=== PATIENT | male | born 1935 | race Caucasian/White ===

== ENCOUNTER 2018-01-25 11:49 | Emergency (ER) | payer OTHER, MEDICARE ==
--- OUTSIDE RECORDS SUMMARY | 2018-01-25 12:05 | XMS REPORT | Clinical Summary ---
:1935 Author Organization [facility] Address [address] [place] [address] Phone Care Team Providers Name Role Phone Unavailable Primary Care Provider Unavailable Allergies Active Allergy Reactions Severity Noted Date Comments Penicillins Other (See Comments) High 12/21/2016 Unknown reaction Clonazepam 12/21/2016 Zombie state Galantamine 12/21/2016 Got more confused Memantine 12/21/2016 Got more confused Current Medications Prescription Sig. Disp. Refills Start Date End Date Status warfarin (COUMADIN) Take 2.5 mg by Active 2.5 MG tablet mouth daily. simvastatin (ZOCOR) 40 Take 40 mg by Active MG tablet mouth nightly. irbesartan (AVAPRO) Take 300 mg by Active 300 MG tablet mouth nightly. levothyroxine Take 50 mcg by Active (SYNTHROID, mouth Every LEVOTHROID) 50 MCG morning on an tablet empty stomach. aspirin 81 MG chewable Take 81 mg by Active tablet mouth daily. metoprolol (TOPROL-XL) Take 25 mg by Active 25 MG 24 hr tablet mouth daily. magnesium oxide 500 mg Take 500 mg by Active Cap mouth daily. cyanocobalamin Take 1 tablet 30 tablet 0 01/02/2017 01/02/2018 (VITAMIN B-12) 100 MCG (100 mcg tablet total) by mouth daily. cholestyramine Take 2 packets 180 packet 0 01/02/2017 02/01/2017 (QUESTRAN) 4 gram PwPk by mouth 3 packet (three) times daily for 30 days. thiamine (VITAMIN B-1) Take 1 tablet 30 tablet 0 01/02/2017 02/01/2017 50 MG tablet (50 mg total) by mouth daily for 30 days. pantoprazole Take 1 tablet 60 tablet 0 01/02/2017 02/01/2017 (PROTONIX) 40 MG (40 mg total) tablet by mouth 2 (two) times daily for 30 days. 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 Acute CVA (cerebrovascular accident) (HCC) 12/21/2016 Altered mental status 12/21/2016 Cancer (HCC) Coronary artery disease Parkinson's disease (HCC) Thyroid disease Asthma Arthritis Pacemaker Atrial fibrillation (HCC) Family History Medical History Relation Name Comments Stroke Father No Known Problem Mother Relation Name Status Comments Father Mother Social History Tobacco Use Types Packs/Day Years Used Date Former Smoker Comments: Quit 15 years ago Alcohol Use Drinks/Week oz/Week Comments No Sex Assigned at Date Recorded Not on file Last Filed Vital Signs Not on file Plan of Treatment Not on file Results ARRYTHMIA IMPLANT REPORT - SCAN (04/24/2017 2:00 PM)RHYTHM STRIP - SCAN (2016 9:50 AM)after 01/24/2017
--- OUTSIDE RECORDS SUMMARY | 2018-01-25 12:06 | XMS REPORT ---
:1935 [facility] Address [address] [place] [address] Care Team Providers Name Role Phone NAV BARKER Unavailable Unavailable Problems This patient has no known problems. Allergies, Adverse Reactions, Alerts This patient has no known allergies or adverse reactions. Medications This patient has no known medications. Results Test Description Test Time Test Comments Text Results Atomic Results Result Comments PANCREATIC ELASTASE, FECAL 2017-02-24 07:31:00 Test Item Value Reference Range Comments SCAN RESULT (test owxq=[id number]) TISSUE [id number] 11:00:00Surgical Pathology Report Case: [id number] Authorizing Provider: Dionicio Wilkes MD Collected: 01/01/2017 1409 Ordering Location: [address] Received: 01/01/2017 1533 Service Pathologist: Franny Chandler MD Specimen: Small Bowel, NOS, Random small bowel bx , r/o celiac SMALL BOWEL, BIOPSY: - SMALL BOWEL MUCOSA WITH FOCAL SURFACE EROSION AND REACTIVE EPITHELIAL CHANGES - NEGATIVE FOR VILLOUS BLUNTING - NEGATIVE FOR SIGNIFICANT INCREASE OF INTRAEPITHELIAL LYMPHOCYTESElectronically signed by Franny Chandler MD on 2016 at 11:00 AMNo gastric metaplasia is identified.[id number], rule out celiacRandom small bowel biopsy Received in formalin labeled "small bowel" are six fragments measuring 0.8 x 0.6 x 0.1 cm in aggregate. The specimen is entirely submitted in A1. DB/ewPerformed.MISCELLANEOUS LAB [id number] 07:23 :00 Test Item Value Reference Range Comments SCAN RESULT (test tllz=[id number]) PROTHROMBIN TIME/[id number] 06:32:00 Test Item Value Reference Range Comments PROTIME (BEAKER) (test rfjg=882) 15.5 seconds 11.7-14.7 INR (BEAKER) (test wmft=941) 1.2 <=5.9 RECOMMENDED COUMADIN/WARFARIN INR THERAPY RANGESSTANDARD DOSE: 2.0 - 3.0 Includes: PROPHYLAXIS forvenous thrombosis, systemic embolization; TREATMENT for venous thrombosis and/or pulmonary embolus.HIGH RISK: Target INR is 2.5-3.5 for patients with mechanical heart valves.Please draw daily INR whileon warfarin. Thanks!COMPREHENSIVE METABOLIC [id number] 05:45:00 Test Item Value Reference Range Comments TOTAL PROTEIN (BEAKER) 6.1 gm/dL 6.0-8.3 (test lyam=206) ALBUMIN (BEAKER) (test 3.3 g/dL 3.5-5.0 fpns=4974) ALKALINE PHOSPHATASE 90 U/L 40-150 (BEAKER) (test miuc=701) BILIRUBIN TOTAL (BEAKER) 1.0 mg/dL 0.2-1.2 (test lxtc=106) SODIUM (BEAKER) (test 135 meq/L 136-145 hooa=744) POTASSIUM (BEAKER) (test 4.1 meq/L 3.5-5.1 qsoa=934) CHLORIDE (BEAKER) (test 112 meq/L 98-107 imtl=897) CO2 (BEAKER) (test 16 meq/L 22-29 ljwe=428) BLOOD UREA NITROGEN 15 mg/dL 7-21 (BEAKER) (test xtlu=486) CREATININE (BEAKER) (test 0.92 mg/dL 0.57-1.25 vhkh=158) GLUCOSE RANDOM (BEAKER) 99 mg/dL 70-105 (test rros=894) CALCIUM (BEAKER) (test 8.6 mg/dL 8.4-10.2 ytes=977) AST (SGOT) (BEAKER) (test 18 U/L 5-34 rjev=855) ALT (SGPT) (BEAKER) (test 26 U/L 6-55 edkd=017) EGFR (BEAKER) (test 79 mL/min/1.73 sq m ESTIMATED GFR IS NOT uavs=4220) ACCURATE CREATININE CLEARANCE IN PREDICTING GLOMERULAR FILTRATION RATE. ESTIMATED GFR IS NOT APPLICABLE FOR DIALYSIS PATIENTS. [id number] 05:33:00 Test Item Value Reference Range Comments PARTIAL THROMBOPLASTIN TIME (BEAKER) (test 32.4 seconds 22.5-36.0 olpy=804) Please draw daily INR while on warfarin. Thanks!PROTHROMBIN TIME/[id number] 05:32:00 Test Item Value Reference Range Comments PROTIME (BEAKER) (test ciwa=106) 17.0 seconds 11.7-14.7 INR (BEAKER) (test fboa=588) 1.4 <=5.9 RECOMMENDED COUMADIN/WARFARIN INR THERAPY RANGESSTANDARD DOSE: 2.0 - 3.0 Includes: PROPHYLAXIS forvenous thrombosis, systemic embolization; TREATMENT for venous thrombosis and/or pulmonary embolus.HIGH RISK: Target INR is 2.5-3.5 for patients with mechanical heart valves.Please draw daily INR whileon warfarin. Thanks!CBC W/PLT COUNT & AUTO [id number] 05:21:00 Test Item Value Reference Range Comments WHITE BLOOD CELL COUNT (BEAKER) (test lpbd=345) 9.0 K/ L 4.0-10.0 RED BLOOD CELL COUNT (BEAKER) (test eyss=445) 4.09 M/ L 4.20-5.80 HEMOGLOBIN (BEAKER) (test ukos=721) 13.6 GM/DL 13.0-16.8 HEMATOCRIT (BEAKER) (test dzqm=617) 39.4 % 40.0-50.0 MEAN CORPUSCULAR VOLUME (BEAKER) (test rkco=800) 96.3 fL 82.0-98.0 MEAN CORPUSCULAR HEMOGLOBIN (BEAKER) (test 33.3 pg 27.0-33.0 awon=776) MEAN CORPUSCULAR HEMOGLOBIN CONC (BEAKER) (test 34.6 GM/DL 32.0-36.0 ilwq=866) RED CELL DISTRIBUTION WIDTH (BEAKER) (test 12.8 % 10.3-14.2 lgud=555) PLATELET COUNT (BEAKER) (test tmgd=292) 300 K/CU MM 150-430 MEAN PLATELET VOLUME (BEAKER) (test fmag=806) 6.7 fL 6.5-10.5 NUCLEATED RED BLOOD CELLS (BEAKER) (test 0 /100 WBC 0-0 jtdl=745) NEUTROPHILS RELATIVE PERCENT (BEAKER) (test 62 % nivo=741) LYMPHOCYTES RELATIVE PERCENT (BEAKER) (test 23 % ympp=200) MONOCYTES RELATIVE PERCENT (BEAKER) (test 9 % zhwu=693) EOSINOPHILS RELATIVE PERCENT (BEAKER) (test 5 % hdjf=629) BASOPHILS RELATIVE PERCENT (BEAKER) (test 1 % qqxc=496) NEUTROPHILS ABSOLUTE COUNT (BEAKER) (test 5.57 K/ L 1.80-8.00 fhif=305) LYMPHOCYTES ABSOLUTE COUNT (BEAKER) (test 2.07 K/ L 1.48-4.50 ogko=798) MONOCYTES ABSOLUTE COUNT (BEAKER) (test 0.84 K/ L 0.00-1.30 utie=536) EOSINOPHILS ABSOLUTE COUNT (BEAKER) (test 0.42 K/ L 0.00-0.50 wtxf=871) BASOPHILS ABSOLUTE COUNT (BEAKER) (test 0.05 K/ L 0.00-0.20 mqrf=495) 0.00PROTHROMBIN [id number] 05:22:00 Test Item Value Reference Range Comments PROTIME (BEAKER) (test yduh=959) 22.5 seconds 11.7-14.7 INR (BEAKER) (test azwc=402) 2.0 <=5.9 RECOMMENDED COUMADIN/WARFARIN INR THERAPY RANGESSTANDARD DOSE: 2.0 - 3.0 Includes: PROPHYLAXIS forvenous thrombosis, systemic embolization; TREATMENT for venous thrombosis and/or pulmonary embolus.HIGH RISK: Target INR is 2.5-3.5 for patients with mechanical heart valves.Please draw daily INR whileon warfarin. Thanks!COMPREHENSIVE METABOLIC [id number] 05:16:00 Test Item Value Reference Range Comments TOTAL PROTEIN (BEAKER) 6.0 gm/dL 6.0-8.3 (test vppy=399) ALBUMIN (BEAKER) (test 3.3 g/dL 3.5-5.0 ygfi=2128) ALKALINE PHOSPHATASE 84 U/L 40-150 (BEAKER) (test grzn=351) BILIRUBIN TOTAL (BEAKER) 0.6 mg/dL 0.2-1.2 (test jnrw=049) SODIUM (BEAKER) (test 135 meq/L 136-145 fphs=550) POTASSIUM (BEAKER) (test 3.9 meq/L 3.5-5.1 stor=045) CHLORIDE (BEAKER) (test 113 meq/L 98-107 enhv=075) CO2 (BEAKER) (test 16 meq/L 22-29 fbrz=158) BLOOD UREA NITROGEN 19 mg/dL 7-21 (BEAKER) (test nrkl=572) CREATININE (BEAKER) (test 1.07 mg/dL 0.57-1.25 vuzh=179) GLUCOSE RANDOM (BEAKER) 104 mg/dL 70-105 (test hbhq=329) CALCIUM (BEAKER) (test 8.6 mg/dL 8.4-10.2 fdue=841) AST (SGOT) (BEAKER) (test 19 U/L 5-34 asde=070) ALT (SGPT) (BEAKER) (test 25 U/L 6-55 oozo=445) EGFR (BEAKER) (test 66 mL/min/1.73 sq m ESTIMATED GFR IS NOT pozo=8986) ACCURATE CREATININE CLEARANCE IN PREDICTING GLOMERULAR FILTRATION RATE. ESTIMATED GFR IS NOT APPLICABLE FOR DIALYSIS PATIENTS. CBC W/PLT COUNT & AUTO [id number] 04:58:00 Test Item Value Reference Range Comments WHITE BLOOD CELL COUNT (BEAKER) (test rwzd=932) 8.8 K/ L 4.0-10.0 RED BLOOD CELL COUNT (BEAKER) (test qlcx=675) 4.11 M/ L 4.20-5.80 HEMOGLOBIN (BEAKER) (test dbkx=435) 13.4 GM/DL 13.0-16.8 HEMATOCRIT (BEAKER) (test pavx=474) 39.8 % 40.0-50.0 MEAN CORPUSCULAR VOLUME (BEAKER) (test kwxu=494) 97.0 fL 82.0-98.0 MEAN CORPUSCULAR HEMOGLOBIN (BEAKER) (test 32.8 pg 27.0-33.0 jecl=257) MEAN CORPUSCULAR HEMOGLOBIN CONC (BEAKER) (test 33.8 GM/DL 32.0-36.0 gjsr=778) RED CELL DISTRIBUTION WIDTH (BEAKER) (test 14.5 % 10.3-14.2 qmbd=743) PLATELET COUNT (BEAKER) (test jufl=458) 304 K/CU MM 150-430 MEAN PLATELET VOLUME (BEAKER) (test vqkg=391) 6.9 fL 6.5-10.5 NUCLEATED RED BLOOD CELLS (BEAKER) (test 0 /100 WBC 0-0 uavs=677) NEUTROPHILS RELATIVE PERCENT (BEAKER) (test 70 % cqmc=712) LYMPHOCYTES RELATIVE PERCENT (BEAKER) (test 17 % klyx=237) MONOCYTES RELATIVE PERCENT (BEAKER) (test 8 % iibd=089) EOSINOPHILS RELATIVE PERCENT (BEAKER) (test 4 % xtnh=861) BASOPHILS RELATIVE PERCENT (BEAKER) (test 1 % bwaq=248) NEUTROPHILS ABSOLUTE COUNT (BEAKER) (test 6.16 K/ L 1.80-8.00 htnk=201) LYMPHOCYTES ABSOLUTE COUNT (BEAKER) (test 1.48 K/ L 1.48-4.50 kdhz=857) MONOCYTES ABSOLUTE COUNT (BEAKER) (test 0.72 K/ L 0.00-1.30 xnkr=469) EOSINOPHILS ABSOLUTE COUNT (BEAKER) (test 0.39 K/ L 0.00-0.50 eviz=904) BASOPHILS ABSOLUTE COUNT (BEAKER) (test 0.05 K/ L 0.00-0.20 mzgd=634) 0.00COMPREHENSIVE METABOLIC [id number] 04:44:00 Test Item Value Reference Range Comments TOTAL PROTEIN (BEAKER) 6.5 gm/dL 6.0-8.3 (test gtlo=791) ALBUMIN (BEAKER) (test 3.5 g/dL 3.5-5.0 rrfb=7509) ALKALINE PHOSPHATASE 87 U/L 40-150 (BEAKER) (test qyal=946) BILIRUBIN TOTAL (BEAKER) 0.6 mg/dL 0.2-1.2 (test hnts=092) SODIUM (BEAKER) (test 135 meq/L 136-145 uwbk=901) POTASSIUM (BEAKER) (test 4.3 meq/L 3.5-5.1 yuth=971) CHLORIDE (BEAKER) (test 111 meq/L 98-107 dvvn=390) CO2 (BEAKER) (test 15 meq/L 22-29 rxfh=247) BLOOD UREA NITROGEN 15 mg/dL 7-21 (BEAKER) (test rosa=049) CREATININE (BEAKER) (test 1.04 mg/dL 0.57-1.25 ytbz=463) GLUCOSE RANDOM (BEAKER) 109 mg/dL 70-105 (test fhyt=696) CALCIUM (BEAKER) (test 9.0 mg/dL 8.4-10.2 wqux=643) AST (SGOT) (BEAKER) (test 15 U/L 5-34 aryt=234) ALT (SGPT) (BEAKER) (test 22 U/L 6-55 avfa=164) EGFR (BEAKER) (test 68 mL/min/1.73 sq m ESTIMATED GFR IS NOT hazj=6315) ACCURATE CREATININE CLEARANCE IN PREDICTING GLOMERULAR FILTRATION RATE. ESTIMATED GFR IS NOT APPLICABLE FOR DIALYSIS PATIENTS. PROTHROMBIN TIME/[id number] 04:32:00 Test Item Value Reference Range Comments PROTIME (BEAKER) (test ctur=353) 25.9 seconds 11.7-14.7 INR (BEAKER) (test rmep=439) 2.4 <=5.9 RECOMMENDED COUMADIN/WARFARIN INR THERAPY RANGESSTANDARD DOSE: 2.0 - 3.0 Includes: PROPHYLAXIS forvenous thrombosis, systemic embolization; TREATMENT for venous thrombosis and/or pulmonary embolus.HIGH RISK: Target INR is 2.5-3.5 for patients with mechanical heart valves.Please draw daily INR whileon warfarin. Thanks!CBC W/PLT COUNT & AUTO [id number] 04:29:00 Test Item Value Reference Range Comments WHITE BLOOD CELL COUNT (BEAKER) (test kjcp=425) 10.1 K/ L 4.0-10.0 RED BLOOD CELL COUNT (BEAKER) (test xrby=916) 4.25 M/ L 4.20-5.80 HEMOGLOBIN (BEAKER) (test khfr=368) 14.0 GM/DL 13.0-16.8 HEMATOCRIT (BEAKER) (test lchy=628) 41.0 % 40.0-50.0 MEAN CORPUSCULAR VOLUME (BEAKER) (test cgtk=737) 96.4 fL 82.0-98.0 MEAN CORPUSCULAR HEMOGLOBIN (BEAKER) (test 33.0 pg 27.0-33.0 bbdd=345) MEAN CORPUSCULAR HEMOGLOBIN CONC (BEAKER) (test 34.2 GM/DL 32.0-36.0 sirv=179) RED CELL DISTRIBUTION WIDTH (BEAKER) (test 14.6 % 10.3-14.2 nvvg=955) PLATELET COUNT (BEAKER) (test swpt=458) 316 K/CU MM 150-430 MEAN PLATELET VOLUME (BEAKER) (test boet=100) 6.8 fL 6.5-10.5 NUCLEATED RED BLOOD CELLS (BEAKER) (test 0 /100 WBC 0-0 kogk=488) NEUTROPHILS RELATIVE PERCENT (BEAKER) (test 72 % zjcd=379) LYMPHOCYTES RELATIVE PERCENT (BEAKER) (test 16 % rrns=661) MONOCYTES RELATIVE PERCENT (BEAKER) (test 8 % lbpx=275) EOSINOPHILS RELATIVE PERCENT (BEAKER) (test 4 % egid=903) BASOPHILS RELATIVE PERCENT (BEAKER) (test 1 % ynjl=256) NEUTROPHILS ABSOLUTE COUNT (BEAKER) (test 7.25 K/ L 1.80-8.00 xwyy=740) LYMPHOCYTES ABSOLUTE COUNT (BEAKER) (test 1.60 K/ L 1.48-4.50 owhl=761) MONOCYTES ABSOLUTE COUNT (BEAKER) (test 0.82 K/ L 0.00-1.30 zvvu=662) EOSINOPHILS ABSOLUTE COUNT (BEAKER) (test 0.38 K/ L 0.00-0.50 neyf=798) BASOPHILS ABSOLUTE COUNT (BEAKER) (test 0.06 K/ L 0.00-0.20 occo=470) 0.00PROTHROMBIN TIME/[id number] 05:07:00 Test Item Value Reference Range Comments PROTIME (BEAKER) (test bcau=412) 25.0 seconds 11.7-14.7 INR (BEAKER) (test uoxg=856) 2.3 <=5.9 RECOMMENDED COUMADIN/WARFARIN INR THERAPY RANGESSTANDARD DOSE: 2.0 - 3.0 Includes: PROPHYLAXIS forvenous thrombosis, systemic embolization; TREATMENT for venous thrombosis and/or pulmonary embolus.HIGH RISK: Target INR is 2.5-3.5 for patients with mechanical heart valves.Please draw daily INR whileon warfarin. Thanks!PROTHROMBIN TIME/[id number] 06:50:00 Test Item Value Reference Range Comments PROTIME (BEAKER) (test jyla=771) 26.2 seconds 11.7-14.7 INR (BEAKER) (test wiih=437) 2.4 <=5.9 RECOMMENDED COUMADIN/WARFARIN INR THERAPY RANGESSTANDARD DOSE: 2.0 - 3.0 Includes: PROPHYLAXIS forvenous thrombosis, systemic embolization; TREATMENT for venous thrombosis and/or pulmonary embolus.HIGH RISK: Target INR is 2.5-3.5 for patients with mechanical heart valves.Please draw daily INR whileon warfarin. Thanks!HIV-1 ANTIGEN WITH HIV-1/2 [id number] 06:50:00 Test Item Value Reference Range Comments HIV-1 ANTIGEN WITH HIV 1\\T\\2 ANTIBODY (2) Nonreactive Nonreactive (BEAKER) (test ribp=6536) FOLATE, [id number] 06:11:00 Test Item Value Reference Range Comments FOLATE (BEAKER) (test aysz=157) 8.0 ng/mL >=7.0 Effective 05/30/2014: Folate Reference Range ChangeNew: >=7.0 Previous: & gt;=5.4PROTHROMBIN TIME/[id number] 05:51:00 Test Item Value Reference Range Comments PROTIME (BEAKER) (test lrpa=683) 23.9 seconds 11.7-14.7 INR (BEAKER) (test klbc=421) 2.1 <=5.9 RECOMMENDED COUMADIN/WARFARIN INR THERAPY RANGESSTANDARD DOSE: 2.0 - 3.0 Includes: PROPHYLAXIS forvenous thrombosis, systemic embolization; TREATMENT for venous thrombosis and/or pulmonary embolus.HIGH RISK: Target INR is 2.5-3.5 for patients with mechanical heart valves.Please draw daily INR whileon warfarin. Thanks!STOOL CULTURE + SHIGA [id number] 11:25:00 Test Item Value Reference Range Comments CULTURE (JAVIDAKER) (test No Salmonella, Shigella or ucms=8050) Campylobacter isolated [id number] 06:19:00 Test Item Value Reference Range Comments HOMOCYSTEINE (BEAKER) (test ilhh=521) 9.1 umol/L 5.1-15.4 PROTHROMBIN TIME/[id number] 06:00:00 Test Item Value Reference Range Comments PROTIME (BEAKER) (test kbmv=229) 23.8 seconds 11.7-14.7 INR (BEAKER) (test ixsg=246) 2.1 <=5.9 RECOMMENDED COUMADIN/WARFARIN INR THERAPY RANGESSTANDARD DOSE: 2.0 - 3.0 Includes: PROPHYLAXIS forvenous thrombosis, systemic embolization; TREATMENT for venous thrombosis and/or pulmonary embolus.HIGH RISK: Target INR is 2.5-3.5 for patients with mechanical heart valves.Please draw daily INR whileon warfarin. Thanks!IMMUNOGLOBULIN M (IGM)2016-12-26 05:58:00 Test Item Value Reference Range Comments IMMUNOGLOBULIN M (IGM) (BEAKER) (test qogx=864) 40 mg/dL 22-293 IMMUNOGLOBULIN A (IGA)2016-12-26 05:58:00 Test Item Value Reference Range Comments IMMUNOGLOBULIN A (IGA) (BEAKER) (test ibqp=871) 179 mg/dL 63-484 SHIGA TOXIN [id number] 19:16:00 Test Item Value Reference Range Comments SHIGA TOXIN 1 (BEAKER) (test azhw=5861) Not detected Not detected SHIGA TOXIN 2 (BEAKER) (test zomp=9152) Not detected Not detected STOOL PATH [id number] 17:36:00 Test Item Value Reference Range Comments PATHOGEN EXAM CHARGED (BEAKER) (test qtls=7050) Done PROTHROMBIN TIME/[id number] 13:40:00 Test Item Value Reference Range Comments PROTIME (BEAKER) (test rojf=429) 23.0 seconds 11.7-14.7 INR (BEAKER) (test gisw=467) 2.0 <=5.9 RECOMMENDED COUMADIN/WARFARIN INR THERAPY RANGESSTANDARD DOSE: 2.0 - 3.0 Includes: PROPHYLAXIS forvenous thrombosis, systemic embolization; TREATMENT for venous thrombosis and/or pulmonary embolus.HIGH RISK: Target INR is 2.5-3.5 for patients with mechanical heart valves.Please draw daily INR whileon warfarin. Thanks!IMMUNOGLOBULIN G (IGG)2016-12-25 06:22:00 Test Item Value Reference Range Comments IMMUNOGLOBULIN G (IGG) (BEAKER) (test ehjs=536) 699 mg/dL 540-1822 FECAL [id number] 01:26:00 Test Item Value Reference Range Comments FECAL LEUKOCYTES (BEAKER) No fecal leukocytes seen No fecal leukocytes seen (test xyte=675) HEPATIC FUNCTION [id number] 14:50:00 Test Item Value Reference Range Comments TOTAL PROTEIN (BEAKER) (test dwra=031) 6.0 gm/dL 6.0-8.3 ALBUMIN (BEAKER) (test oyis=9897) 3.2 g/dL 3.5-5.0 BILIRUBIN TOTAL (BEAKER) (test rqrv=721) 0.5 mg/dL 0.2-1.2 BILIRUBIN DIRECT (BEAKER) (test dwpj=128) 0.2 mg/dL 0.1-0.5 ALKALINE PHOSPHATASE (BEAKER) (test gxwp=203) 74 U/L 40-150 AST (SGOT) (BEAKER) (test icxf=194) 17 U/L 5-34 ALT (SGPT) (BEAKER) (test zjus=436) 21 U/L 6-55 C-REACTIVE [id number] 14:50:00 Test Item Value Reference Range Comments C-REACTIVE PROTEIN (BEAKER) (test ljbq=254) 1.30 mg/dL 0.00-0.50 [id number] 14:45:00 Test Item Value Reference Range Comments PREALBUMIN (BEAKER) (test 19 mg/dL 14-45 Specimen slightly hemolyzed snej=819) [id number] 05:36:00 Test Item Value Reference Range Comments MAGNESIUM (BEAKER) (test luoi=641) 1.8 mg/dL 1.6-2.6 BASIC METABOLIC [id number] 05:36:00 Test Item Value Reference Range Comments SODIUM (BEAKER) (test 137 meq/L 136-145 kxzg=711) POTASSIUM (BEAKER) (test 3.6 meq/L 3.5-5.1 vsrn=931) CHLORIDE (BEAKER) (test 109 meq/L 98-107 jaxy=244) CO2 (BEAKER) (test 20 meq/L 22-29 zvly=133) BLOOD UREA NITROGEN 13 mg/dL 7-21 (BEAKER) (test bblp=940) CREATININE (BEAKER) (test 0.83 mg/dL 0.57-1.25 felx=729) GLUCOSE RANDOM (BEAKER) 103 mg/dL 70-105 (test wtkn=546) CALCIUM (BEAKER) (test 8.3 mg/dL 8.4-10.2 lmnp=869) EGFR (BEAKER) (test 88 mL/min/1.73 sq m ESTIMATED GFR IS NOT ozxr=2168) ACCURATE CREATININE CLEARANCE IN PREDICTING GLOMERULAR FILTRATION RATE. ESTIMATED GFR IS NOT APPLICABLE FOR DIALYSIS PATIENTS. PROTHROMBIN TIME/[id number] 05:33:00 Test Item Value Reference Range Comments PROTIME (BEAKER) (test iaps=886) 27.9 seconds 11.7-14.7 INR (BEAKER) (test mhys=541) 2.6 <=5.9 RECOMMENDED COUMADIN/WARFARIN INR THERAPY RANGESSTANDARD DOSE: 2.0 - 3.0 Includes: PROPHYLAXIS forvenous thrombosis, systemic embolization; TREATMENT for venous thrombosis and/or pulmonary embolus.HIGH RISK: Target INR is 2.5-3.5 for patients with mechanical heart valves.CBC (HEMOGRAM ONLY)2016-12-24 05:21:00 Test Item Value Reference Range Comments WHITE BLOOD CELL COUNT (BEAKER) (test toxv=839) 8.8 K/ L 4.0-10.0 RED BLOOD CELL COUNT (BEAKER) (test akqq=574) 3.85 M/ L 4.20-5.80 HEMOGLOBIN (BEAKER) (test uvib=512) 12.2 GM/DL 13.0-16.8 HEMATOCRIT (BEAKER) (test ssnp=056) 37.3 % 40.0-50.0 MEAN CORPUSCULAR VOLUME (BEAKER) (test ddsg=524) 96.9 fL 82.0-98.0 MEAN CORPUSCULAR HEMOGLOBIN (BEAKER) (test 31.6 pg 27.0-33.0 jfss=409) MEAN CORPUSCULAR HEMOGLOBIN CONC (BEAKER) (test 32.6 GM/DL 32.0-36.0 pnwi=344) RED CELL DISTRIBUTION WIDTH (BEAKER) (test 14.6 % 10.3-14.2 fmur=816) PLATELET COUNT (BEAKER) (test axnb=100) 247 K/CU MM 150-430 MEAN PLATELET VOLUME (BEAKER) (test ursh=439) 7.0 fL 6.5-10.5 NUCLEATED RED BLOOD CELLS (BEAKER) (test 0 /100 WBC 0-0 fdty=149) 0.00VITAMIN D, [id number] 19:10:00 Test Item Value Reference Range Comments VITAMIN D 25-OH (BEAKER) (test gwck=5628) < ng/mL 13.0-47.8 POCT-GLUCOSE [id number] 08:14:00 Test Item Value Reference Range Comments POC-GLUCOSE METER (BEAKER) 225 mg/dL 70-110 TESTED AT [facility] [address] [facility] (test bprk=2288) [facility] [address] [id number] 05:51:00 Test Item Value Reference Range Comments MAGNESIUM (BEAKER) (test vdpm=283) 2.0 mg/dL 1.6-2.6 BASIC METABOLIC [id number] 05:51:00 Test Item Value Reference Range Comments SODIUM (BEAKER) (test 137 meq/L 136-145 vdab=394) POTASSIUM (BEAKER) (test 3.7 meq/L 3.5-5.1 mcnh=098) CHLORIDE (BEAKER) (test 107 meq/L 98-107 thnr=328) CO2 (BEAKER) (test 20 meq/L 22-29 mzip=949) BLOOD UREA NITROGEN 19 mg/dL 7-21 (BEAKER) (test ocdu=200) CREATININE (BEAKER) (test 0.96 mg/dL 0.57-1.25 jfxy=810) GLUCOSE RANDOM (BEAKER) 106 mg/dL 70-105 (test xrhj=071) CALCIUM (BEAKER) (test 8.7 mg/dL 8.4-10.2 xvdi=746) EGFR (BEAKER) (test 75 mL/min/1.73 sq m ESTIMATED GFR IS NOT ytrw=8959) ACCURATE CREATININE CLEARANCE IN PREDICTING GLOMERULAR FILTRATION RATE. ESTIMATED GFR IS NOT APPLICABLE FOR DIALYSIS PATIENTS. PROTHROMBIN [id number] 05:38:00 Test Item Value Reference Range Comments PROTIME (BEAKER) (test iheo=869) 21.9 seconds 11.7-14.7 INR (BEAKER) (test dyzm=633) 1.9 <=5.9 RECOMMENDED COUMADIN/WARFARIN INR THERAPY RANGESSTANDARD DOSE: 2.0 - 3.0 Includes: PROPHYLAXIS forvenous thrombosis, systemic embolization; TREATMENT for venous thrombosis and/or pulmonary embolus.HIGH RISK: Target INR is 2.5-3.5 for patients with mechanical heart valves.CBC (HEMOGRAM ONLY)2016-12-23 05:37:00 Test Item Value Reference Range Comments WHITE BLOOD CELL COUNT (BEAKER) (test iavm=032) 9.4 K/ L 4.0-10.0 RED BLOOD CELL COUNT (BEAKER) (test ebhx=317) 4.14 M/ L 4.20-5.80 HEMOGLOBIN (BEAKER) (test cbkm=654) 13.5 GM/DL 13.0-16.8 HEMATOCRIT (BEAKER) (test wzmn=963) 40.4 % 40.0-50.0 MEAN CORPUSCULAR VOLUME (BEAKER) (test ktju=048) 97.6 fL 82.0-98.0 MEAN CORPUSCULAR HEMOGLOBIN (BEAKER) (test 32.6 pg 27.0-33.0 dhha=937) MEAN CORPUSCULAR HEMOGLOBIN CONC (BEAKER) (test 33.4 GM/DL 32.0-36.0 feku=081) RED CELL DISTRIBUTION WIDTH (BEAKER) (test 14.8 % 10.3-14.2 igyh=594) PLATELET COUNT (BEAKER) (test phex=633) 243 K/CU MM 150-430 MEAN PLATELET VOLUME (BEAKER) (test cgsg=683) 7.4 fL 6.5-10.5 NUCLEATED RED BLOOD CELLS (BEAKER) (test 0 /100 WBC 0-0 vkfb=232) [id number] 11:58:00 Test Item Value Reference Range Comments RPR SCREEN (BEAKER) (test dvay=093) Nonreactive Nonreactive CLOSTRIDIUM DIFFICILE TOXIN [id number] 11:24:00 Test Item Value Reference Range Comments CLOSTRIDIUM DIFFICILE TOXIN, PCR (BEAKER) (test Not Detected Not Detected mnjr=5296) This qualitative real-time polymerase chain reaction assay detects the tcdB gene , encoded on the C.difficile pathogenicity locus (PaLoc). The product of tcdB, toxin B, is a cytotoxin essential for causing C.difficile-associated disease ( CDAD) and is found in virtually all toxigenic C.difficile.This assay is performed for patients suspected of having either community-acquired or nosocomial CDAD. Accordingly, only symptomatic patients should be tested and formed stools will be rejected unless ileus is present (i.e., specified when ordering). Patients may be colonized with toxigenic C.difficile strains not causing active disease; therefore, clinical correlation is needed when deciding how to manage patients with a positive test result.The assay has not been validated as a test of cure as amplifiable nucleic acid may persist after effective treatment; therefore, follow-up testing of a positive result is not recommended.This qualitative real-time polymerase chain reaction assay detects the tcdB gene, encoded on the C.difficile pathogenicity locus (PaLoc). The product of tcdB, toxin B, is a cytotoxin essential for causing C.difficile- associated disease (CDAD) and is found in virtually all toxigenic C.difficile.This assay is performed for patients suspected of having either community-acquired or nosocomial CDAD. Accordingly, only symptomatic patients should be tested and formed stools will berejected unless ileus is present (i.e. , specified when ordering). Patients may be colonized with toxigenic C.difficile strains not causing active disease; therefore, clinical correlation is needed when deciding how to manage patients with a positive test result.The assay has not been validated as a test of cure as amplifiable nucleic acid may persist after effective treatment; therefore, follow-up testing of a positive result is not recommended.HEMOGLOBIN [id number] 08:09:00 Test Item Value Reference Range Comments HEMOGLOBIN A1C (BEAKER) (test xblu=139) 6.5 % 4.3-6.1 TSH/FREE T4 IF [id number] 07:26:00 Test Item Value Reference Range Comments THYROID STIMULATING HORMONE (BEAKER) (test 1.35 uIU/mL 0.35-4.94 uztl=671) [id number] 07:13:00 Test Item Value Reference Range Comments MAGNESIUM (BEAKER) (test blsh=973) 2.0 mg/dL 1.6-2.6 BASIC METABOLIC [id number] 07:13:00 Test Item Value Reference Range Comments SODIUM (BEAKER) (test 137 meq/L 136-145 kwfl=009) POTASSIUM (BEAKER) (test 3.6 meq/L 3.5-5.1 pkrl=520) CHLORIDE (BEAKER) (test 107 meq/L 98-107 pjyd=480) CO2 (BEAKER) (test 20 meq/L 22-29 xuso=763) BLOOD UREA NITROGEN 18 mg/dL 7-21 (BEAKER) (test sjft=618) CREATININE (BEAKER) (test 0.92 mg/dL 0.57-1.25 ospi=847) GLUCOSE RANDOM (BEAKER) 97 mg/dL 70-105 (test yqfq=543) CALCIUM (BEAKER) (test 8.5 mg/dL 8.4-10.2 jkwc=588) EGFR (BEAKER) (test 79 mL/min/1.73 sq m ESTIMATED GFR IS NOT bxqi=1327) ACCURATE CREATININE CLEARANCE IN PREDICTING GLOMERULAR FILTRATION RATE. ESTIMATED GFR IS NOT APPLICABLE FOR DIALYSIS PATIENTS. LIPID [id number] 07:13:00 Test Item Value Reference Range Comments TRIGLYCERIDES (BEAKER) (test enzz=361) 141 mg/dL CHOLESTEROL (BEAKER) (test gubn=579) 160 mg/dL HDL CHOLESTEROL (BEAKER) (test akku=974) 34 mg/dL LDL CHOLESTEROL CALCULATED (BEAKER) (test 98 mg/dL hlyn=744) Triglyceride Reference Range: Low Risk <150 Borderline 150- 199 High Risk 200-499 Very High Risk >=500Cholesterol Reference Range: Low Risk <200 Borderline 200-239 High Risk > 240HDL Cholesterol Reference Range: Low Risk >=60 High Risk <40LDL Cholesterol Reference Range: Optimal <100 Near Optimal 100-129 Borderline 130-159 High 160-189 Very High >=190CBC (HEMOGRAM ONLY)2016-12-22 07:08:00 Test Item Value Reference Range Comments WHITE BLOOD CELL COUNT (BEAKER) (test kquh=876) 7.6 K/ L 4.0-10.0 RED BLOOD CELL COUNT (BEAKER) (test nrdl=675) 3.98 M/ L 4.20-5.80 HEMOGLOBIN (BEAKER) (test hfpl=021) 13.2 GM/DL 13.0-16.8 HEMATOCRIT (BEAKER) (test hpdx=610) 38.8 % 40.0-50.0 MEAN CORPUSCULAR VOLUME (BEAKER) (test rplb=930) 97.7 fL 82.0-98.0 MEAN CORPUSCULAR HEMOGLOBIN (BEAKER) (test 33.1 pg 27.0-33.0 kxun=510) MEAN CORPUSCULAR HEMOGLOBIN CONC (BEAKER) (test 33.9 GM/DL 32.0-36.0 byhn=643) RED CELL DISTRIBUTION WIDTH (BEAKER) (test 14.7 % 10.3-14.2 iipz=082) PLATELET COUNT (BEAKER) (test dcjm=499) 222 K/CU MM 150-430 MEAN PLATELET VOLUME (BEAKER) (test xqit=905) 7.2 fL 6.5-10.5 NUCLEATED RED BLOOD CELLS (BEAKER) (test 0 /100 WBC 0-0 ddeh=433) 0.00PROTHROMBIN [id number] 07:04:00 Test Item Value Reference Range Comments PROTIME (BEAKER) (test rnyn=224) 22.9 seconds 11.7-14.7 INR (BEAKER) (test wssi=688) 2.0 <=5.9 RECOMMENDED COUMADIN/WARFARIN INR THERAPY RANGESSTANDARD DOSE: 2.0 - 3.0 Includes: PROPHYLAXIS forvenous thrombosis, systemic embolization; TREATMENT for venous thrombosis and/or pulmonary embolus.HIGH RISK: Target INR is 2.5-3.5 for patients with mechanical heart valves.PROTHROMBIN TIME/[id number] 07:03: 00 Test Item Value Reference Range Comments PROTIME (BEAKER) (test ajwk=019) 22.6 seconds 11.7-14.7 INR (BEAKER) (test hypl=110) 2.0 <=5.9 RECOMMENDED COUMADIN/WARFARIN INR THERAPY RANGESSTANDARD DOSE: 2.0 - 3.0 Includes: PROPHYLAXIS forvenous thrombosis, systemic embolization; TREATMENT for venous thrombosis and/or pulmonary embolus.HIGH RISK: Target INR is 2.5-3.5 for patients with mechanical heart valves.VITAMIN [id number] 23:18:00 Test Item Value Reference Range Comments VITAMIN B12 (BEAKER) (test xhgh=078) 210 pg/mL 213-816 SEDIMENTATION [id number] 23:06:00 Test Item Value Reference Range Comments SEDIMENTATION RATE, ERYTHROCYTE (BEAKER) (test 29 mm/HR 0-40 gdnd=508) B-TYPE NATRIURETIC FACTOR (BNP)2016-12-21 18:19:00 Test Item Value Reference Range Comments B-TYPE NATRIURETIC PEPTIDE (BEAKER) (test 124 pg/mL 0-100 jsdl=629) BASIC METABOLIC [id number] 18:11:00 Test Item Value Reference Range Comments SODIUM (BEAKER) (test 136 meq/L 136-145 dzxe=480) POTASSIUM (BEAKER) (test 4.2 meq/L 3.5-5.1 Specimen slightly gvtn=918) hemolyzed CHLORIDE (BEAKER) (test 107 meq/L 98-107 cbpm=108) CO2 (BEAKER) (test 19 meq/L 22-29 hqqt=246) BLOOD UREA NITROGEN 22 mg/dL 7-21 (BEAKER) (test xsmm=126) CREATININE (BEAKER) 1.20 mg/dL 0.57-1.25 Specimen slightly (test mtie=228) hemolyzed GLUCOSE RANDOM (BEAKER) 180 mg/dL 70-105 (test erks=609) CALCIUM (BEAKER) (test 8.8 mg/dL 8.4-10.2 kxfi=376) EGFR (BEAKER) (test 58 mL/min/1.73 sq m INSUFFICIENT CLINICAL DATA sxtr=0965) TO CALCULATE ESTIMATED GFR. CREATINE KINASE (CK), TOTAL AND [id number] 18:11:00 Test Item Value Reference Range Comments CREATINE KINASE TOTAL (BEAKER) (test jdem=149) 36 U/L 29-200 CREATINE KINASE-MB (BEAKER) (test fean=606) 0.5 ng/mL 0.0-6.6 CREATINE KINASE-MB INDEX (BEAKER) (test rffx=935) 1.4 % Effective 05/30/2014: CK-MB Reference Range ChangeNew: 0.0-6.6 Previous: 0.0- 4.9CK-MB Reference Range:<6.7 Normal6.7-10.0 Borderline>10.0 [id number] 18:11:00 Test Item Value Reference Range Comments MAGNESIUM (BEAKER) (test 2.0 mg/dL 1.6-2.6 Specimen slightly hemolyzed scqh=952) TROPONIN [id number] 18:11:00 Test Item Value Reference Range Comments TROPONIN I (BEAKER) (test xdgt=835) 0.01 ng/mL 0.00-0.03 Effective 05/30/2014: Reference Range ChangeNew: 0.00-0.03 Previous 0.00- 0.15Troponin I (TnI) levels must be interpreted in the context of the presenting symptoms and the clinical findings. Elevated TnI levels indicate myocardial damage, but are not specific for ischemic heart disease. Elevated TnI levels are seen in patients with other cardiac conditions (including myocarditis and congestive heartfailure), and slight TnI elevations occur in patients with other conditions, including sepsis, renalfailure, acidosis, acute neurological disease, and persistent tachyarrhythmia.PT/[id number] 17:11:00 Test Item Value Reference Range Comments PROTIME (BEAKER) (test qijc=232) 25.6 seconds 11.7-14.7 INR (BEAKER) (test gfej=562) 2.3 <=5.9 PARTIAL THROMBOPLASTIN TIME (BEAKER) (test 36.5 seconds 22.5-36.0 tngg=839) RECOMMENDED COUMADIN/WARFARIN INR THERAPY RANGESSTANDARD DOSE: 2.0 - 3.0 Includes: PROPHYLAXIS forvenous thrombosis, systemic embolization; TREATMENT for venous thrombosis and/or pulmonary embolus.HIGH RISK: Target INR is 2.5-3.5 for patients with mechanical heart valves.CBC W/PLT COUNT & AUTO [id number] 17:04:00 Test Item Value Reference Range Comments WHITE BLOOD CELL COUNT (BEAKER) (test mjwz=240) 11.9 K/ L 4.0-10.0 RED BLOOD CELL COUNT (BEAKER) (test umyd=945) 4.40 M/ L 4.20-5.80 HEMOGLOBIN (BEAKER) (test tnqh=815) 14.1 GM/DL 13.0-16.8 HEMATOCRIT (BEAKER) (test gqaj=645) 42.8 % 40.0-50.0 MEAN CORPUSCULAR VOLUME (BEAKER) (test qgtx=409) 97.1 fL 82.0-98.0 MEAN CORPUSCULAR HEMOGLOBIN (BEAKER) (test 32.0 pg 27.0-33.0 qdaq=911) MEAN CORPUSCULAR HEMOGLOBIN CONC (BEAKER) (test 33.0 GM/DL 32.0-36.0 pxds=826) RED CELL DISTRIBUTION WIDTH (BEAKER) (test 14.7 % 10.3-14.2 xtmc=936) PLATELET COUNT (BEAKER) (test lgyc=911) 246 K/CU MM 150-430 MEAN PLATELET VOLUME (BEAKER) (test iwfx=235) 7.2 fL 6.5-10.5 NEUTROPHILS RELATIVE PERCENT (BEAKER) (test 93 % otum=173) LYMPHOCYTES RELATIVE PERCENT (BEAKER) (test 2 % tptr=540) MONOCYTES RELATIVE PERCENT (BEAKER) (test 3 % tpkk=495) EOSINOPHILS RELATIVE PERCENT (BEAKER) (test 1 % fivp=434) BASOPHILS RELATIVE PERCENT (BEAKER) (test 1 % hryz=506) NEUTROPHILS ABSOLUTE COUNT (BEAKER) (test K/ L 1.80-8.00 xrte=393) LYMPHOCYTES ABSOLUTE COUNT (BEAKER) (test K/ L 1.48-4.50 tkur=465) MONOCYTES ABSOLUTE COUNT (BEAKER) (test K/ L 0.00-1.30 rcax=704) EOSINOPHILS ABSOLUTE COUNT (BEAKER) (test K/ L 0.00-0.50 nvvb=509) BASOPHILS ABSOLUTE COUNT (BEAKER) (test K/ L 0.00-0.20 jqmz=319)
[2018-01-25] MEDS ORDERED: NA CHLORIDE 0.9% 1,000 ML ONE (12:28)
[2018-01-25 12:50] LABS: Protime INR 2.41
[2018-01-25 12:51] LABS: Absolute Lymphocytes (CBC) 1.3 K/uL (0.7-4.9); Absolute Monocytes 0.7 K/uL (0.1-1.3); Absolute Neutrophil 5.9 K/uL (1.8-8.0); Basophils % 0.7 % (0-1.3); Hematocrit 39.2 % (39.6-49.0); Lymphocytes % 16.3 % (15.3-44.8); MCH 33.3 pg (27.0-35.0); MCV 95.9 fL (80-100); MPV 8.3 fL (7.6-11.3); Monocytes % 8.4 % (3.3-12.3); RBC Red Blood Cell Count 4.09 M/uL (4.33-5.43)
--- NOTE | 2018-01-25 13:27 | RAD REPORT ---
EXAM DESCRIPTION: RAD - Chest Single View - 01/25/2018 1:15 pm CLINICAL HISTORY: Fall, left-sided chest and rib pain COMPARISON: June 2015 TECHNIQUE: AP portable chest image was obtained 1256 hours . FINDINGS: Lung volumes are low. No gross evidence for pulmonary contusion, pulmonary edema or acute lung parenchymal process. Prominence of the vasculature and lung markings can be explained by the sha llow inspiration. No pneumothorax is seen. No large pleural effusion. Small pleural fluid or blood collections in the p osterior gutter cannot be excluded on shallow inspiration portable imaging. Trachea is midline. 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 Heart and vasculature are normal. No ac génesis bone process identifiable. Rib assessment is significantly limited. Dedicated rib series or CT ch est imaging could be performed if there is need to further evaluate the ribcage. No acute aortic find ings suspected. IMPRESSION: No pneumothorax or large pleural fluid collection. Shallow inspiration portable exam accentuates vasculature and lung markings. Significant edema or inf iltrate not suspected. Rib fracture assessment is very limited. Follow-up rib series or CT imaging could be performed as renee ranted.
[2018-01-25 13:34] LABS: ALT/SGPT 19 U/L (12-78); AST/SGOT 12 U/L (15-37); Albumin 3.4 g/dL (3.4-5.0); Alkaline Phosphatase 73 U/L (45-117); BUN Blood Urea Nitrogen 26 mg/dL (7-18); Bicarbonate 26 mmol/L (21-32); Bilirubin Direct 0.1 mg/dL (0-0.2); Bilirubin Total 0.5 mg/dL (0.2-1.0); CKMB Creatine Kinase MB < 1.0 ng/mL (0.3-3.6); Creatine Phosphokinase 46 U/L (39-308); Glucose Level 109 mg/dL (74-106); Lipase 128 U/L (73-393); Magnesium 2.1 mg/dL (1.8-2.4); NT PRO-BNP 323 pg/mL (<450); Potassium 4.3 mmol/L (3.5-5.1); Protein, Total 6.9 g/dL (6.4-8.2); Sodium Level 142 mmol/L (136-145)
--- NOTE | 2018-01-25 14:34 | RAD REPORT ---
EXAM DESCRIPTION: CT - Head C Spine Cap Marv Nguyen - 01/25/2018 2:03 pm CLINICAL HISTORY: Fall, head and neck injury, left-sided rib pain, left-sided abdominal pain COMPARISON: CT lumbar spine January 2017, lumbar spine January 2017. TECHNIQUE: Axial [address] head images were obtained. Axial [address] cervical spine images were obtaine d with sagittal and coronal reconstruction images reviewed. During dynamic enhancement of 100mL non-i onic contrast, axial 5 mm images of the chest, abdomen and pelvis were obtained. All CT scans are performed using dose optimization technique as appropriate and may include automated exposure control or mA/KV adjustment according to patient size. FINDINGS: No intracranial hemorrhage, mass or edema. No midline shift or abnormal fluid collection. Moderate atrophy and chronic ischemic changes are present. Ventricular size is in proportion. Mastoid air cells are clear. Air-fluid level in the right sphenoid sinus present. No findings to suggest sku llbase fracture. Jacobson of the right side sphenoid sinus are thickened relative to the left and this i s probably part of a mixed acute and chronic sphenoid sinusitis. Remaining paranasal sinuses are wendy r. Dense arterial tree calcifications are present. CT cervical spine imaging shows normal height. Straightening of the usual cervical lordosis seen with a very slight retrolisthesis of C5 on C6. Significant disc space narrowing at C4-5, C5-6 and C6-7. E ndplate spurring and uncovertebral joint hypertrophy are present. There is bony foraminal encroachmen t at C5-6 and C6-7. Facet joint degenerative changes are present throughout the cervical spine. Canal is borderline to mildly stenotic at C5-6. Central canal detail is inherently limited. Concerns for t raumatic disc herniation or traumatic cord injury can be further addressed with MR imaging. CT chest shows no pneumothorax, pulmonary contusion or pleural fluid collection. A small 7 mm noncalc ified nodule is present in the superior segment left lower lobe (image 25/96). No mediastinal hematom a. There several nonspecific mediastinal lymph nodes some of which have calcification. No chest will mass or abnormal axillary finding. No displaced rib fracture or other significant bony finding. No p ericardial thickening or effusion. CT abdomen and pelvis show no injury to solid abdominal viscera. Gallbladder and biliary tree are unr emarkable. No acute bowel injury. There is a large amount of stool dilating the rectum. Numerous pelv ic floor clips are present presumed to be from prostatectomy. No abnormal mass or lymphadenopathy. No free air, free fluid or abnormal stranding. No urinary bladder abnormality. The patient has extensive disc and bony degenerative change. Approximately 50% wedge compression of T 12 is present not felt to be substantially different from January 2017. Approximately 15% loss in height L1 body is noted involving the inferior endplate. Posterior wall height is preserved. This is new fr om the comparison but otherwise of uncertain age. No definitive acute component on this examination. IMPRESSION: Atrophy and chronic ischemic changes are present. No acute intracranial finding. Air-fluid level in the right side sphenoid sinuses believed to be part of an acute and chronic sinusi tis process. Skullbase fracture not suspected. Cervical spine degenerative change present as detailed. No acute findings seen. Central canal detail is inherently limited. No pneumothorax, pulmonary contusion, rib fracture or other acute traumatic finding in the chest. A 7 mm noncalcified pulmonary nodule is present. This is probably a noncalcified granuloma. Patient h as evidence of granulomatous disease. Recommendation for follow-up is CT imaging in 6-12 months. No acute injury to the solid abdominal viscera or bowel. No acute abdominal or pelvic process. Large amount of stool dilates the rectum. Approximately 15% compression fracture deformity L1. This is new from January 2017 but is otherwise of u ncertain age. Correlation is needed with any acute symptoms in the upper lumbar spine. The 50% T12 co mpression fracture does not appear to be substantially different from January 2017.
--- NOTE | 2018-01-25 15:16 | EKG ---
Test Date: 2018-01-25 Test Time: 12:25:32 Facility Environmental Technician: CAROLINE MEASUREMENT RESULTS: Intervals: Rate: 70 [place]: QRSD: 140 QT: 420 QTc: 453 [place]: P: [place]: QRS: -54 T: 124 INTERPRETIVE STATEMENTS: Ventricular-paced rhythm Abnormal ECG No previous ECG available for comparison Electronically Signed On 01-25-18 15:15:39 CDT by Faustino Russell
--- NOTE | 2018-01-25 15:33 | ER ---
Nurse's Notes [facility] Name: Luis Schumacher Age: 82 yrs Sex: Male : 1935 Arrival Date: 01/25/2018 Time: 11:53 Bed 8 Private MD: Kd Torres R Diagnosis: Fall due to bumping against object;Fracture of first lumbar vertebra-15 % COMPRESSION;Parkinson's disease;Dementia in other diseases classified elsewhere;Acute sinusitis;Solitary pulmonary nodule Presentation: 01/25 11:58 Presenting complaint: Significant other states: "he fell onto a wooden arm rest and aa5 he's been complaining about the left side of his ribs hurting". Pt's also reports increased confusion over the last week. Pt currently oriented x person and place. Pt's reports pt takes Coumadin, denies known head injury. 11:58 Transition of care: patient was not received from another setting of care. Onset of aa5 symptoms was January 2018. Risk Assessment: Do you want to hurt yourself or someone else? Patient reports no desire to harm self or others. Initial Sepsis Screen: Does the patient meet any 2 criteria? No. Patient's initial sepsis screen is negative. Does the patient have a suspected source of infection? No. Patient's initial sepsis screen is negative. Care prior to arrival: None. 11:58 Method Of Arrival: Wheelchair aa5 11:58 Acuity: MARSHA 2 aa5 Triage Assessment: 12:31 General: Appears in no apparent distress. uncomfortable, Behavior is calm, cooperative, hj appropriate for age. Pain: Complains of pain in left upper quadrant. EENT: No signs and/or symptoms were reported regarding the EENT system. Neuro: Level of Consciousness is awake, alert, obeys commands, Oriented to person, place, situation. Cardiovascular: Capillary refill < 3 seconds Patient's skin is warm and dry. Respiratory: Airway is patent Respiratory effort is even, unlabored, Respiratory pattern is regular, symmetrical. GI: No signs and/or symptoms were reported involving the gastrointestinal system. : No signs and/or symptoms were reported regarding the genitourinary system. Derm: No signs and/or symptoms reported regarding the dermatologic system. Musculoskeletal: Reports pain in left upper quadrant. Historical: - Allergies: 12:03 PENICILLINS; aa5 - PMHx: 12:03 Parkinsons; Hypertension; Carotid artery blockage; CVA; aa5 - PSHx: 12:03 None; aa5 - Immunization history:: Adult Immunizations unknown. - Social history:: Smoking status: Patient/guardian denies using tobacco. - Ebola Screening: : No symptoms or risks identified at this time. - Family history:: not pertinent. Screenin:27 Abuse screen: Denies threats or abuse. Denies injuries from another. Nutritional hj screening: No deficits noted. Tuberculosis screening: No symptoms or risk factors identified. Fall Risk None identified. Assessment: 12:32 Reassessment: see triage assessment;. hj 12:58 Reassessment: Patient and/or family updated on plan of care and expected duration. Pain hj level reassessed. xray taken, awaiting results and POC;. Vital Signs: 12:02 BP 128 / 74; Pulse 80; Resp 20 S; Temp 98.4(O); Pulse Ox 95% on R/A; Weight 104.33 kg aa5 (R); 12:58 BP 129 / 75; Pulse 84; Resp 18; Pulse Ox 100% on R/A; hj ED Course: 11:53 Patient arrived in ED. rg4 11:53 Kd Torres MD is Private Physician. rg4 12:01 Arm band placed on. aa5 12:05 Triage completed. aa5 12:07 Vivek Moseley MD is Attending Physician. gilbert 12:26 Rubén Muniz, RN is Primary Nurse. hj 12:26 EKG done, by communications technologist. reviewed by Vivek Moseley MD. at1 12:32 Patient has correct armband on for positive identification. Placed in gown. Bed in low hj position. Call light in reach. Side rails up X2. Adult w/ patient. 12:42 Initial lab(s) drawn, by me, sent to lab. Inserted saline lock: 20 gauge in right jb1 antecubital area, using aseptic technique. Blood collected. 13:15 XRAY Chest (1 view) In Process Unspecified. EDMS 13:56 CT completed. Patient tolerated procedure well. Patient moved to CT via stretcher. sj Patient moved back from CT. 14:03 CT Traumagram (Head C Spine CAP W Con) In Process Unspecified. EDMS 15:31 Kd Torres MD is Referral Physician. [facility] 15:35 Straight cath inserted, using sterile technique, 16 Fr. Specimen obtained. Returned aj clear yellow urine. Patient tolerated well. 16:01 No provider procedures requiring assistance completed. IV discontinued, intact, hj bleeding controlled, No redness/swelling at site. Pressure dressing applied. Administered Medications: 12:21 Drug: NS 0.9% 500 ml Route: IV; Rate: bolus; Site: right antecubital; hj 16:03 Follow up: IV Status: Completed infusion 12:49 Drug: NS 0.9% 1000 ml Route: IV; Rate: 125 ml/hr; Site: right antecubital; hj 16:03 Follow up: IV Status: Completed infusion Outcome: 15:33 Discharge ordered by . [facility] 16:02 Discharged to home via wheelchair. 16:02 Condition: stable 16:02 Discharge instructions given to patient, family, Instructed on discharge instructions, follow up and referral plans. medication usage, Demonstrated understanding of instructions, follow-up care, medications, Prescriptions given X 1. 16:13 Patient left the ED. Signatures: Dispatcher [employer] EDMS Gerardo Arndt jb1 Keri Bailey, RN Vivek Garza MD MD cha Jones, Susan sj Calderon, Audri, RN RN aa5 Keri garay, global marketing operations manager EKG Tat1 Rubén Muniz RN RN Kateryna Schultz rg4 Corrections: (The following items were deleted from the chart) 12:02 12:02 BP 128 / 74; Pulse 80bpm; Resp 20bpm; Spontaneous; Pulse Ox 95% RA; Temp 98.4F aa5 Oral; aa5
--- NOTE | 2018-01-25 15:33 | EDPHYS ---
Physician Documentation [facility] Name: Luis Schumacher Age: 82 yrs Sex: Male : 1935 Arrival Date: 01/25/2018 Time: 11:53 Bed 8 Private MD: Kd Torres R ED Physician Vivek Moseley HPI: 01/25 12:22 This 82 yrs old Male presents to ER via Wheelchair with complaints of RIB gilbert PAIN,DISORIENTED. 12:22 The patient presents with abdominal pain abdominal distention in the upper abdomen, gilbert blunt injury to the upper abdomen. Onset: The symptoms/episode began/occurred 5 day(s) ago. The patient presents with decreased mental status. Onset: The symptoms/episode began/occurred 2 day(s) ago. Possible causes: unknown. Associated signs and symptoms: The patient has no apparent associated signs or symptoms. Current symptoms: In the emergency department the patient's symptoms are unchanged from the initial presentation, despite home interventions. Historical: - Allergies: 12:03 PENICILLINS; aa5 - PMHx: 12:03 Parkinsons; Hypertension; Carotid artery blockage; CVA; aa5 - PSHx: 12:03 None; aa5 - Immunization history:: Adult Immunizations unknown. - Social history:: Smoking status: Patient/guardian denies using tobacco. - Ebola Screening: : No symptoms or risks identified at this time. - Family history:: not pertinent. ROS: 12:22 Constitutional: Negative for fever, chills, and weight loss, Eyes: Negative for injury, gilbert pain, redness, and discharge, ENT: Negative for injury, pain, and discharge, Neck: Negative for injury, pain, and swelling, Cardiovascular: Negative for chest pain, palpitations, and edema, Respiratory: Negative for shortness of breath, cough, wheezing, and pleuritic chest pain, Back: Negative for injury and pain, : Negative for injury, bleeding, discharge, and swelling, MS/Extremity: Negative for injury and deformity, Skin: Negative for injury, rash, and discoloration, Psych: Negative for depression, anxiety, suicide ideation, homicidal ideation, and hallucinations, Allergy/Immunology: Negative for hives, rash, and allergies, Endocrine: Negative for neck swelling, polydipsia, polyuria, polyphagia, and marked weight changes, Hematologic/Lymphatic: Negative for swollen nodes, abnormal bleeding, and unusual bruising. 12:22 Abdomen/GI: Positive for abdominal pain, of the left upper quadrant. 12:22 Neuro: Positive for altered mental status, dizziness, weakness. Exam: 12:22 Constitutional: This is a well developed, well nourished patient who is awake, alert, gilbert and in no acute distress. Head/Face: Normocephalic, atraumatic. Eyes: Pupils equal round and reactive to light, extra-ocular motions intact. Lids and lashes normal. Conjunctiva and sclera are non-icteric and not injected. Cornea within normal limits. Periorbital areas with no swelling, redness, or edema. ENT: Nares patent. No nasal discharge, no septal abnormalities noted. Tympanic membranes are normal and external auditory canals are clear. Oropharynx with no redness, swelling, or masses, exudates, or evidence of obstruction, uvula midline. Mucous membranes moist. Neck: Trachea midline, no thyromegaly or masses palpated, and no cervical lymphadenopathy. Supple, full range of motion without nuchal rigidity, or vertebral point tenderness. No Meningismus. Chest/axilla: Normal chest wall appearance and motion. Nontender with no deformity. No lesions are appreciated. Cardiovascular: Regular rate and rhythm with a normal S1 and S2. No gallops, murmurs, or rubs. Normal PMI, no JVD. No pulse deficits. Respiratory: Lungs have equal breath sounds bilaterally, clear to auscultation and percussion. No rales, rhonchi or wheezes noted. No increased work of breathing, no retractions or nasal flaring. Abdomen/GI: Soft, non-tender, with normal bowel sounds. No distension or tympany. No guarding or rebound. No evidence of tenderness throughout. Back: No spinal tenderness. No costovertebral tenderness. Full range of motion. Male : Normal genitalia with no discharge or lesions. Skin: Warm, dry with normal turgor. Normal color with no rashes, no lesions, and no evidence of cellulitis. MS/ Extremity: Pulses equal, no cyanosis. Neurovascular intact. Full, normal range of motion. Psych: Awake, alert, with orientation to person, place and time. Behavior, mood, and affect are within normal limits. 12:22 Neuro: Orientation: appropriate for stated age, no acute changes, Mentation: slow to respond, Memory: unable to test, Cranial nerves: no acute changes, Cerebellar function: unable to test, Motor: moves all fours, Sensation: unable to test, Gait: not tested. seizure activity, is not displayed by the patient. Vital Signs: 12:02 BP 128 / 74; Pulse 80; Resp 20 S; Temp 98.4(O); Pulse Ox 95% on R/A; Weight 104.33 kg aa5 (R); 12:58 BP 129 / 75; Pulse 84; Resp 18; Pulse Ox 100% on R/A; hj MDM: 12:07 Patient medically screened. [facility] 12:22 Data reviewed: vital signs, nurses notes, lab test result(s), EKG, radiologic studies, [facility] CT scan, plain films. 01/25 12:21 Order name: Basic Metabolic Panel; Complete Time: 14:13 [facility] 01/25 12:21 Order name: CBC with Diff; Complete Time: 14:13 [facility] 01/25 12:21 Order name: Ckmb; Complete Time: 14:13 [facility] 01/25 12:21 Order name: CPK; Complete Time: 14:13 [facility] 01/25 12:21 Order name: LFT's; Complete Time: 14:13 [facility] 01/25 12:21 Order name: Magnesium; Complete Time: 14:13 [facility] 01/25 12:21 Order name: NT PRO-BNP; Complete Time: 14:13 [facility] 01/25 12:21 Order name: PT-INR; Complete Time: 14:13 [facility] 01/25 12:21 Order name: Ptt, Activated; Complete Time: 14:13 [facility] 01/25 12:21 Order name: Troponin (emerg Dept Use Only); Complete Time: 14:13 [facility] 01/25 12:21 Order name: XRAY Chest (1 view); Complete Time: 14:13 [facility] 01/25 12:21 Order name: Lipase; Complete Time: 14:13 [facility] 01/25 12:21 Order name: Urine Culture [facility] 01/25 15:43 Order name: Urine Dipstick--Ancillary (enter results) 01/25 12:21 Order name: EKG; Complete Time: 12:22 [facility] 01/25 12:21 Order name: Cardiac monitoring; Complete Time: 12:34 [facility] 01/25 12:21 Order name: EKG - Nurse/Tech; Complete Time: 12:34 [facility] 01/25 12:21 Order name: IV Saline Lock; Complete Time: 12:43 [facility] 01/25 12:21 Order name: Labs collected and sent; Complete Time: 12:43 [facility] 01/25 12:21 Order name: O2 Per Protocol; Complete Time: 12:34 [facility] 01/25 12:21 Order name: O2 Sat Monitoring; Complete Time: 12:34 [facility] 01/25 12:21 Order name: Urine Dipstick-Ancillary (obtain specimen); Complete Time: 15:38 [facility] 01/25 12:21 Order name: CT Traumagram (Head C Spine CAP W Con); Complete Time: 15:22 [facility] 01/25 15:31 Order name: INCENTIVE SPIROMETRY [facility] Administered Medications: 12:21 Drug: NS 0.9% 500 ml Route: IV; Rate: bolus; Site: right antecubital; hj 16:03 Follow up: IV Status: Completed infusion 12:49 Drug: NS 0.9% 1000 ml Route: IV; Rate: 125 ml/hr; Site: right antecubital; hj 16:03 Follow up: IV Status: Completed infusion hj Disposition: 01/25/18 15:33 Discharged to Home. Impression: Fall due to bumping against object, Fracture of first lumbar vertebra - 15 % COMPRESSION, Parkinson's disease, Dementia in other diseases classified elsewhere, Acute sinusitis, Solitary pulmonary nodule. - Condition is Stable. - Discharge Instructions: Back, Compression Fracture, Dementia, Fall Prevention and Home Safety, Sinusitis, Adult, Sinusitis, [id number], Vascular Dementia, Fall Prevention and Home Safety, [id number], Pulmonary Nodule, Pulmonary Nodule, [id number]. - Prescriptions for Bactrim DS 800- 160 mg Oral Tablet - take 1 tablet by ORAL route every 12 hours for 10 days; 20 tablet. - Medication Reconciliation Form, Thank You Letter, Antibiotic Education, Prescription Opioid Use form. - Follow up: Kd Torres MD; When: 1 - 2 days; Reason: Recheck today's complaints, Continuance of care, Re-evaluation by your physician. - Problem is new. - Symptoms have improved. Signatures: Dispatcher [employer] Vivek Drummond MD MD cha Calderon, Audri, RN RN aa5 Rubén Muniz RN RN hj Corrections: (The following items were deleted from the chart) 16:13 15:33 01/25/2018 15:33 Discharged to Home. Impression: Fall due to bumping against hj object; Fracture of first lumbar vertebra - 15 % COMPRESSION; Parkinson's disease; Dementia in other diseases classified elsewhere; Acute sinusitis; Solitary pulmonary nodule. Condition is Stable. Forms are Medication Reconciliation Form, Thank You Letter, Antibiotic Education, Prescription Opioid Use. Follow up: Kd Torres; When: 1 - 2 days; Reason: Recheck today's complaints, Continuance of care, Re-evaluation by your physician. Problem is new. Symptoms have improved. gilbert
[2018-01-25 16:17] VITALS: TEMP 98.4
[2018-01-25 16:18] VITALS: BP 129/75; O2SAT 100
[2018-01-25 16:49] LABS: Urine Blood 1+ (NEG); Urine Glucose NEGATIVE (NEG); Urine Protein NEGATIVE (NEG); Urine Specific Gravity 1.015 (1.005-1.030); Urine pH 5.5 (5.0-7.0)
== END 2018-01-25 16:13 | disposition home or self-care (01) ==
LOC: ER 11:49
DX: S32.010A Wedge compression fracture of first lumbar vertebra, initial encounter for closed fracture (principal); J01.90 Acute sinusitis, unspecified; R91.1 Solitary pulmonary nodule; G20 Parkinson's disease; F02.80 Dementia in other diseases classified elsewhere, unspecified severity, without behavioral disturbance, psychotic disturbance, mood disturbance, and anxiety; W18.00XA Striking against unspecified object with subsequent fall, initial encounter; Y93.9 Activity, unspecified; Y92.9 Unspecified place or not applicable; Z88.0 Allergy status to penicillin
CPT/HCPCS: 36415; 70450; 71045; 71260; 72125; 74177; 80048; 80076; 81003; 82550; 82553; 83690; 83735; 83880; 84484; 85025; 85610; 85730; 87086; 87088; 93005; J7030; Q9967; 51702; 96360; 96361; 99284

== ENCOUNTER 2018-03-10 14:19 | Observation (INO) | payer OTHER, MEDICARE ==
--- OUTSIDE RECORDS SUMMARY | 2018-03-10 14:21 | XMS REPORT | Clinical Summary ---
:1935 Author Organization [facility] Address [address] [place] [address] Phone Care Team Providers Name Role Phone [...] 01/02/2018 (VITAMIN B-12) 100 MCG (100 mcg total) tablet by mouth daily. Active Problems Problem Noted Date Diarrheal disease [...] ARRYTHMIA IMPLANT REPORT - SCAN (04/24/2017 2:00 PM)after 03/09/2017
--- OUTSIDE RECORDS SUMMARY | 2018-03-10 14:22 | XMS REPORT ---
:1935 Author Organization [facility] Address [address] [place] [address] Care Team Providers Name Role Phone NAV [...] Value Reference Range Comments SCAN RESULT (test gudh=[id number]) TISSUE [id number] 11:00:00Surgical Pathology Report Case: [id number] Authorizing Provider: Dionicio Wilkes MD Collected: 01/01/2017 1409 Ordering Location: [address] Received: 01/01/2017 1533 Service Pathologist: Franny Chandler MD Specimen: Small Bowel, NOS, Random small bowel bx , r/o celiac SMALL BOWEL, BIOPSY: - SMALL BOWEL MUCOSA WITH FOCAL SURFACE EROSION AND REACTIVE EPITHELIAL CHANGES - NEGATIVE FOR VILLOUS BLUNTING - NEGATIVE FOR SIGNIFICANT INCREASE OF INTRAEPITHELIAL LYMPHOCYTESElectronically signed by Franny Chandler MD on 2016 at 11:00 AMNo gastric metaplasia is identified.[id number], rule out celiacRandom small bowel biopsy Received in formalin labeled "small bowel" are six fragments measuring 0.8 x 0.6 x 0.1 cm in aggregate. The specimen is entirely submitted in A1. DB/ewPerformed.MISCELLANEOUS LAB [id number] 07:23 :00 Test Item Value Reference Range Comments SCAN RESULT (test qugz=[id number]) PROTHROMBIN TIME/[id number] 06:32:00 Test Item Value Reference Range Comments PROTIME (BEAKER) (test gypt=787) 15.5 seconds 11.7-14.7 INR (BEAKER) (test jjfl=290) 1.2 <=5.9 RECOMMENDED COUMADIN/WARFARIN INR THERAPY RANGESSTANDARD DOSE: 2.0 - 3.0 Includes: PROPHYLAXIS forvenous thrombosis, systemic embolization; TREATMENT for venous thrombosis and/or pulmonary embolus.HIGH RISK: Target INR is 2.5-3.5 for patients with mechanical heart valves.Please draw daily INR whileon warfarin. Thanks!COMPREHENSIVE METABOLIC [id number] 05:45:00 Test Item Value Reference Range Comments TOTAL PROTEIN (BEAKER) 6.1 gm/dL 6.0-8.3 (test feua=202) ALBUMIN (BEAKER) (test 3.3 g/dL 3.5-5.0 eooq=9427) ALKALINE PHOSPHATASE 90 U/L 40-150 (BEAKER) (test fgpz=080) BILIRUBIN TOTAL (BEAKER) 1.0 mg/dL 0.2-1.2 (test thyy=781) SODIUM (BEAKER) (test 135 meq/L 136-145 txqr=135) POTASSIUM (BEAKER) (test 4.1 meq/L 3.5-5.1 utcf=147) CHLORIDE (BEAKER) (test 112 meq/L 98-107 czvj=091) CO2 (BEAKER) (test 16 meq/L 22-29 aukn=885) BLOOD UREA NITROGEN 15 mg/dL 7-21 (BEAKER) (test aumc=325) CREATININE (BEAKER) (test 0.92 mg/dL 0.57-1.25 vbwi=700) GLUCOSE RANDOM (BEAKER) 99 mg/dL 70-105 (test itxn=937) CALCIUM (BEAKER) (test 8.6 mg/dL 8.4-10.2 qmvl=634) AST (SGOT) (BEAKER) (test 18 U/L 5-34 rcbw=832) ALT (SGPT) (BEAKER) (test 26 U/L 6-55 cfbp=876) EGFR (BEAKER) (test 79 mL/min/1.73 sq m ESTIMATED GFR IS NOT yutw=1877) ACCURATE CREATININE CLEARANCE IN PREDICTING GLOMERULAR FILTRATION RATE. ESTIMATED GFR IS NOT APPLICABLE FOR DIALYSIS PATIENTS. [id number] 05:33:00 Test Item Value Reference Range Comments PARTIAL THROMBOPLASTIN TIME (BEAKER) (test 32.4 seconds 22.5-36.0 guse=007) Please draw daily INR while on warfarin. Thanks!PROTHROMBIN TIME/[id number] 05:32:00 Test Item Value Reference Range Comments PROTIME (BEAKER) (test bogq=646) 17.0 seconds 11.7-14.7 INR (BEAKER) (test ibep=013) 1.4 <=5.9 RECOMMENDED COUMADIN/WARFARIN INR THERAPY RANGESSTANDARD DOSE: 2.0 - 3.0 Includes: PROPHYLAXIS forvenous thrombosis, systemic embolization; TREATMENT for venous thrombosis and/or pulmonary embolus.HIGH RISK: Target INR is 2.5-3.5 for patients with mechanical heart valves.Please draw daily INR whileon warfarin. Thanks!CBC W/PLT COUNT & AUTO [id number] 05:21:00 Test Item Value Reference Range Comments WHITE BLOOD CELL COUNT (BEAKER) (test wuve=556) 9.0 K/ L 4.0-10.0 RED BLOOD CELL COUNT (BEAKER) (test ghoh=220) 4.09 M/ L 4.20-5.80 HEMOGLOBIN (BEAKER) (test coyh=034) 13.6 GM/DL 13.0-16.8 HEMATOCRIT (BEAKER) (test bozv=776) 39.4 % 40.0-50.0 MEAN CORPUSCULAR VOLUME (BEAKER) (test sjdc=199) 96.3 fL 82.0-98.0 MEAN CORPUSCULAR HEMOGLOBIN (BEAKER) (test 33.3 pg 27.0-33.0 taon=074) MEAN CORPUSCULAR HEMOGLOBIN CONC (BEAKER) (test 34.6 GM/DL 32.0-36.0 tvjf=529) RED CELL DISTRIBUTION WIDTH (BEAKER) (test 12.8 % 10.3-14.2 jvmz=366) PLATELET COUNT (BEAKER) (test euca=046) 300 K/CU MM 150-430 MEAN PLATELET VOLUME (BEAKER) (test thib=388) 6.7 fL 6.5-10.5 NUCLEATED RED BLOOD CELLS (BEAKER) (test 0 /100 WBC 0-0 gcco=075) NEUTROPHILS RELATIVE PERCENT (BEAKER) (test 62 % utuh=082) LYMPHOCYTES RELATIVE PERCENT (BEAKER) (test 23 % cneg=838) MONOCYTES RELATIVE PERCENT (BEAKER) (test 9 % yvjc=487) EOSINOPHILS RELATIVE PERCENT (BEAKER) (test 5 % gmmo=364) BASOPHILS RELATIVE PERCENT (BEAKER) (test 1 % ixon=743) NEUTROPHILS ABSOLUTE COUNT (BEAKER) (test 5.57 K/ L 1.80-8.00 ezhx=715) LYMPHOCYTES ABSOLUTE COUNT (BEAKER) (test 2.07 K/ L 1.48-4.50 uigi=778) MONOCYTES ABSOLUTE COUNT (BEAKER) (test 0.84 K/ L 0.00-1.30 vmaf=429) EOSINOPHILS ABSOLUTE COUNT (BEAKER) (test 0.42 K/ L 0.00-0.50 hkul=734) BASOPHILS ABSOLUTE COUNT (BEAKER) (test 0.05 K/ L 0.00-0.20 tjhv=164) 0.00PROTHROMBIN [id number] 05:22:00 Test Item Value Reference Range Comments PROTIME (BEAKER) (test lcmv=564) 22.5 seconds 11.7-14.7 INR (BEAKER) (test iadq=456) 2.0 <=5.9 RECOMMENDED COUMADIN/WARFARIN INR THERAPY RANGESSTANDARD DOSE: 2.0 - 3.0 Includes: PROPHYLAXIS forvenous thrombosis, systemic embolization; TREATMENT for venous thrombosis and/or pulmonary embolus.HIGH RISK: Target INR is 2.5-3.5 for patients with mechanical heart valves.Please draw daily INR whileon warfarin. Thanks!COMPREHENSIVE METABOLIC [id number] 05:16:00 Test Item Value Reference Range Comments TOTAL PROTEIN (BEAKER) 6.0 gm/dL 6.0-8.3 (test eeku=855) ALBUMIN (BEAKER) (test 3.3 g/dL 3.5-5.0 msux=4073) ALKALINE PHOSPHATASE 84 U/L 40-150 (BEAKER) (test iqfb=731) BILIRUBIN TOTAL (BEAKER) 0.6 mg/dL 0.2-1.2 (test ixco=185) SODIUM (BEAKER) (test 135 meq/L 136-145 nswu=423) POTASSIUM (BEAKER) (test 3.9 meq/L 3.5-5.1 xiob=959) CHLORIDE (BEAKER) (test 113 meq/L 98-107 yzjx=525) CO2 (BEAKER) (test 16 meq/L 22-29 ciyj=786) BLOOD UREA NITROGEN 19 mg/dL 7-21 (BEAKER) (test rmne=912) CREATININE (BEAKER) (test 1.07 mg/dL 0.57-1.25 uagd=941) GLUCOSE RANDOM (BEAKER) 104 mg/dL 70-105 (test vabt=776) CALCIUM (BEAKER) (test 8.6 mg/dL 8.4-10.2 vclt=147) AST (SGOT) (BEAKER) (test 19 U/L 5-34 ucrs=811) ALT (SGPT) (BEAKER) (test 25 U/L 6-55 sivk=919) EGFR (BEAKER) (test 66 mL/min/1.73 sq m ESTIMATED GFR IS NOT zker=8694) ACCURATE CREATININE CLEARANCE IN PREDICTING GLOMERULAR FILTRATION RATE. ESTIMATED GFR IS NOT APPLICABLE FOR DIALYSIS PATIENTS. CBC W/PLT COUNT & AUTO [id number] 04:58:00 Test Item Value Reference Range Comments WHITE BLOOD CELL COUNT (BEAKER) (test lmmi=354) 8.8 K/ L 4.0-10.0 RED BLOOD CELL COUNT (BEAKER) (test xilp=735) 4.11 M/ L 4.20-5.80 HEMOGLOBIN (BEAKER) (test xrzz=725) 13.4 GM/DL 13.0-16.8 HEMATOCRIT (BEAKER) (test uxtc=926) 39.8 % 40.0-50.0 MEAN CORPUSCULAR VOLUME (BEAKER) (test tbeb=213) 97.0 fL 82.0-98.0 MEAN CORPUSCULAR HEMOGLOBIN (BEAKER) (test 32.8 pg 27.0-33.0 vfac=452) MEAN CORPUSCULAR HEMOGLOBIN CONC (BEAKER) (test 33.8 GM/DL 32.0-36.0 nhwq=877) RED CELL DISTRIBUTION WIDTH (BEAKER) (test 14.5 % 10.3-14.2 hutw=990) PLATELET COUNT (BEAKER) (test mimy=352) 304 K/CU MM 150-430 MEAN PLATELET VOLUME (BEAKER) (test vczf=247) 6.9 fL 6.5-10.5 NUCLEATED RED BLOOD CELLS (BEAKER) (test 0 /100 WBC 0-0 lbnr=163) NEUTROPHILS RELATIVE PERCENT (BEAKER) (test 70 % adwg=155) LYMPHOCYTES RELATIVE PERCENT (BEAKER) (test 17 % tvgt=674) MONOCYTES RELATIVE PERCENT (BEAKER) (test 8 % fmvn=741) EOSINOPHILS RELATIVE PERCENT (BEAKER) (test 4 % kpcb=812) BASOPHILS RELATIVE PERCENT (BEAKER) (test 1 % inmm=493) NEUTROPHILS ABSOLUTE COUNT (BEAKER) (test 6.16 K/ L 1.80-8.00 sruw=655) LYMPHOCYTES ABSOLUTE COUNT (BEAKER) (test 1.48 K/ L 1.48-4.50 gbxj=959) MONOCYTES ABSOLUTE COUNT (BEAKER) (test 0.72 K/ L 0.00-1.30 ysum=647) EOSINOPHILS ABSOLUTE COUNT (BEAKER) (test 0.39 K/ L 0.00-0.50 ryze=466) BASOPHILS ABSOLUTE COUNT (BEAKER) (test 0.05 K/ L 0.00-0.20 hqci=257) 0.00COMPREHENSIVE METABOLIC [id number] 04:44:00 Test Item Value Reference Range Comments TOTAL PROTEIN (BEAKER) 6.5 gm/dL 6.0-8.3 (test avio=835) ALBUMIN (BEAKER) (test 3.5 g/dL 3.5-5.0 klpy=4745) ALKALINE PHOSPHATASE 87 U/L 40-150 (BEAKER) (test ztiy=054) BILIRUBIN TOTAL (BEAKER) 0.6 mg/dL 0.2-1.2 (test jhqp=851) SODIUM (BEAKER) (test 135 meq/L 136-145 zqle=898) POTASSIUM (BEAKER) (test 4.3 meq/L 3.5-5.1 mujn=108) CHLORIDE (BEAKER) (test 111 meq/L 98-107 qian=436) CO2 (BEAKER) (test 15 meq/L 22-29 rcav=220) BLOOD UREA NITROGEN 15 mg/dL 7-21 (BEAKER) (test zrjv=875) CREATININE (BEAKER) (test 1.04 mg/dL 0.57-1.25 njfn=873) GLUCOSE RANDOM (BEAKER) 109 mg/dL 70-105 (test rwrc=958) CALCIUM (BEAKER) (test 9.0 mg/dL 8.4-10.2 hyxc=101) AST (SGOT) (BEAKER) (test 15 U/L 5-34 qgyq=753) ALT (SGPT) (BEAKER) (test 22 U/L 6-55 urnz=614) EGFR (BEAKER) (test 68 mL/min/1.73 sq m ESTIMATED GFR IS NOT mapg=4090) ACCURATE CREATININE CLEARANCE IN PREDICTING GLOMERULAR FILTRATION RATE. ESTIMATED GFR IS NOT APPLICABLE FOR DIALYSIS PATIENTS. PROTHROMBIN [id number] 04:32:00 Test Item Value Reference Range Comments PROTIME (BEAKER) (test iprm=033) 25.9 seconds 11.7-14.7 INR (BEAKER) (test jlfu=428) 2.4 <=5.9 RECOMMENDED COUMADIN/WARFARIN INR THERAPY RANGESSTANDARD DOSE: 2.0 - 3.0 Includes: PROPHYLAXIS forvenous thrombosis, systemic embolization; TREATMENT for venous thrombosis and/or pulmonary embolus.HIGH RISK: Target INR is 2.5-3.5 for patients with mechanical heart valves.Please draw daily INR whileon warfarin. Thanks!CBC W/PLT COUNT & AUTO [id number] 04:29:00 Test Item Value Reference Range Comments WHITE BLOOD CELL COUNT (BEAKER) (test eqjw=368) 10.1 K/ L 4.0-10.0 RED BLOOD CELL COUNT (BEAKER) (test mmze=681) 4.25 M/ L 4.20-5.80 HEMOGLOBIN (BEAKER) (test ulru=985) 14.0 GM/DL 13.0-16.8 HEMATOCRIT (BEAKER) (test taan=150) 41.0 % 40.0-50.0 MEAN CORPUSCULAR VOLUME (BEAKER) (test oswg=815) 96.4 fL 82.0-98.0 MEAN CORPUSCULAR HEMOGLOBIN (BEAKER) (test 33.0 pg 27.0-33.0 xjeq=193) MEAN CORPUSCULAR HEMOGLOBIN CONC (BEAKER) (test 34.2 GM/DL 32.0-36.0 uagd=989) RED CELL DISTRIBUTION WIDTH (BEAKER) (test 14.6 % 10.3-14.2 vcrr=185) PLATELET COUNT (BEAKER) (test kuuo=276) 316 K/CU MM 150-430 MEAN PLATELET VOLUME (BEAKER) (test awit=735) 6.8 fL 6.5-10.5 NUCLEATED RED BLOOD CELLS (BEAKER) (test 0 /100 WBC 0-0 zwsm=056) NEUTROPHILS RELATIVE PERCENT (BEAKER) (test 72 % hkvg=363) LYMPHOCYTES RELATIVE PERCENT (BEAKER) (test 16 % gnwd=828) MONOCYTES RELATIVE PERCENT (BEAKER) (test 8 % wose=858) EOSINOPHILS RELATIVE PERCENT (BEAKER) (test 4 % ubab=549) BASOPHILS RELATIVE PERCENT (BEAKER) (test 1 % nnii=605) NEUTROPHILS ABSOLUTE COUNT (BEAKER) (test 7.25 K/ L 1.80-8.00 auwq=860) LYMPHOCYTES ABSOLUTE COUNT (BEAKER) (test 1.60 K/ L 1.48-4.50 daac=837) MONOCYTES ABSOLUTE COUNT (BEAKER) (test 0.82 K/ L 0.00-1.30 hbpd=850) EOSINOPHILS ABSOLUTE COUNT (BEAKER) (test 0.38 K/ L 0.00-0.50 lbwx=174) BASOPHILS ABSOLUTE COUNT (BEAKER) (test 0.06 K/ L 0.00-0.20 nelb=090) 0.00PROTHROMBIN TIME/[id number] 05:07:00 Test Item Value Reference Range Comments PROTIME (BEAKER) (test rskd=543) 25.0 seconds 11.7-14.7 INR (BEAKER) (test iiti=483) 2.3 <=5.9 RECOMMENDED COUMADIN/WARFARIN INR THERAPY RANGESSTANDARD DOSE: 2.0 - 3.0 Includes: PROPHYLAXIS forvenous thrombosis, systemic embolization; TREATMENT for venous thrombosis and/or pulmonary embolus.HIGH RISK: Target INR is 2.5-3.5 for patients with mechanical heart valves.Please draw daily INR whileon warfarin. Thanks!PROTHROMBIN TIME/[id number] 06:50:00 Test Item Value Reference Range Comments PROTIME (BEAKER) (test hicl=856) 26.2 seconds 11.7-14.7 INR (BEAKER) (test nfkm=937) 2.4 <=5.9 RECOMMENDED COUMADIN/WARFARIN INR THERAPY RANGESSTANDARD DOSE: 2.0 - 3.0 Includes: PROPHYLAXIS forvenous thrombosis, systemic embolization; TREATMENT for venous thrombosis and/or pulmonary embolus.HIGH RISK: Target INR is 2.5-3.5 for patients with mechanical heart valves.Please draw daily INR whileon warfarin. Thanks!HIV-1 ANTIGEN WITH HIV-1/2 [id number] 06:50:00 Test Item Value Reference Range Comments HIV-1 ANTIGEN WITH HIV 1\\T\\2 ANTIBODY (2) Nonreactive Nonreactive (BEAKER) (test delw=7872) FOLATE, [id number] 06:11:00 Test Item Value Reference Range Comments FOLATE (BEAKER) (test xhwh=500) 8.0 ng/mL >=7.0 Effective 05/30/2014: Folate Reference Range ChangeNew: >=7.0 Previous: & gt;=5.4PROTHROMBIN TIME/[id number] 05:51:00 Test Item Value Reference Range Comments PROTIME (BEAKER) (test cicf=942) 23.9 seconds 11.7-14.7 INR (BEAKER) (test wltm=339) 2.1 <=5.9 RECOMMENDED COUMADIN/WARFARIN INR THERAPY RANGESSTANDARD DOSE: 2.0 - 3.0 Includes: PROPHYLAXIS forvenous thrombosis, systemic embolization; TREATMENT for venous thrombosis and/or pulmonary embolus.HIGH RISK: Target INR is 2.5-3.5 for patients with mechanical heart valves.Please draw daily INR whileon warfarin. Thanks!STOOL CULTURE + SHIGA [id number] 11:25:00 Test Item Value Reference Range Comments CULTURE (BEAKER) (test No Salmonella, Shigella or jpjg=0796) Campylobacter isolated [id number] 06:19:00 Test Item Value Reference Range Comments HOMOCYSTEINE (BEAKER) (test oeph=151) 9.1 umol/L 5.1-15.4 PROTHROMBIN TIME/[id number] 06:00:00 Test Item Value Reference Range Comments PROTIME (BEAKER) (test kpuv=524) 23.8 seconds 11.7-14.7 INR (BEAKER) (test xefk=729) 2.1 <=5.9 RECOMMENDED COUMADIN/WARFARIN INR THERAPY RANGESSTANDARD DOSE: 2.0 - 3.0 Includes: PROPHYLAXIS forvenous thrombosis, systemic embolization; TREATMENT for venous thrombosis and/or pulmonary embolus.HIGH RISK: Target INR is 2.5-3.5 for patients with mechanical heart valves.Please draw daily INR whileon warfarin. Thanks!IMMUNOGLOBULIN M (IGM)2016-12-26 05:58:00 Test Item Value Reference Range Comments IMMUNOGLOBULIN M (IGM) (BEAKER) (test nhwz=101) 40 mg/dL 22-293 IMMUNOGLOBULIN A (IGA)2016-12-26 05:58:00 Test Item Value Reference Range Comments IMMUNOGLOBULIN A (IGA) (BEAKER) (test oysx=914) 179 mg/dL 63-484 SHIGA TOXIN [id number] 19:16:00 Test Item Value Reference Range Comments SHIGA TOXIN 1 (BEAKER) (test xorx=5170) Not detected Not detected SHIGA TOXIN 2 (BEAKER) (test jlex=3083) Not detected Not detected STOOL PATH [id number] 17:36:00 Test Item Value Reference Range Comments PATHOGEN EXAM CHARGED (BEAKER) (test gjxr=3866) Done PROTHROMBIN TIME/[id number] 13:40:00 Test Item Value Reference Range Comments PROTIME (BEAKER) (test unvo=131) 23.0 seconds 11.7-14.7 INR (BEAKER) (test xdhb=043) 2.0 <=5.9 RECOMMENDED COUMADIN/WARFARIN INR THERAPY RANGESSTANDARD DOSE: 2.0 - 3.0 Includes: PROPHYLAXIS forvenous thrombosis, systemic embolization; TREATMENT for venous thrombosis and/or pulmonary embolus.HIGH RISK: Target INR is 2.5-3.5 for patients with mechanical heart valves.Please draw daily INR whileon warfarin. Thanks!IMMUNOGLOBULIN G (IGG)2016-12-25 06:22:00 Test Item Value Reference Range Comments IMMUNOGLOBULIN G (IGG) (BEAKER) (test bakc=453) 699 mg/dL 540-1822 FECAL [id number] 01:26:00 Test Item Value Reference Range Comments FECAL LEUKOCYTES (BEAKER) No fecal leukocytes seen No fecal leukocytes seen (test omkm=478) HEPATIC FUNCTION [id number] 14:50:00 Test Item Value Reference Range Comments TOTAL PROTEIN (BEAKER) (test sqwr=982) 6.0 gm/dL 6.0-8.3 ALBUMIN (BEAKER) (test btmi=6654) 3.2 g/dL 3.5-5.0 BILIRUBIN TOTAL (BEAKER) (test rfrz=047) 0.5 mg/dL 0.2-1.2 BILIRUBIN DIRECT (BEAKER) (test sgcy=828) 0.2 mg/dL 0.1-0.5 ALKALINE PHOSPHATASE (BEAKER) (test yctk=602) 74 U/L 40-150 AST (SGOT) (BEAKER) (test mnkx=025) 17 U/L 5-34 ALT (SGPT) (BEAKER) (test nlso=127) 21 U/L 6-55 C-REACTIVE [id number] 14:50:00 Test Item Value Reference Range Comments C-REACTIVE PROTEIN (BEAKER) (test dpny=847) 1.30 mg/dL 0.00-0.50 [id number] 14:45:00 Test Item Value Reference Range Comments PREALBUMIN (BEAKER) (test 19 mg/dL 14-45 Specimen slightly hemolyzed vbgx=837) [id number] 05:36:00 Test Item Value Reference Range Comments MAGNESIUM (BEAKER) (test raku=555) 1.8 mg/dL 1.6-2.6 BASIC METABOLIC [id number] 05:36:00 Test Item Value Reference Range Comments SODIUM (BEAKER) (test 137 meq/L 136-145 syrv=401) POTASSIUM (BEAKER) (test 3.6 meq/L 3.5-5.1 paaq=175) CHLORIDE (BEAKER) (test 109 meq/L 98-107 rdxo=639) CO2 (BEAKER) (test 20 meq/L 22-29 hekm=898) BLOOD UREA NITROGEN 13 mg/dL 7-21 (BEAKER) (test qqxz=120) CREATININE (BEAKER) (test 0.83 mg/dL 0.57-1.25 pfhi=905) GLUCOSE RANDOM (BEAKER) 103 mg/dL 70-105 (test wfqs=046) CALCIUM (BEAKER) (test 8.3 mg/dL 8.4-10.2 chzd=121) EGFR (BEAKER) (test 88 mL/min/1.73 sq m ESTIMATED GFR IS NOT zhcq=1277) ACCURATE CREATININE CLEARANCE IN PREDICTING GLOMERULAR FILTRATION RATE. ESTIMATED GFR IS NOT APPLICABLE FOR DIALYSIS PATIENTS. PROTHROMBIN [id number] 05:33:00 Test Item Value Reference Range Comments PROTIME (BEAKER) (test gguj=736) 27.9 seconds 11.7-14.7 INR (BEAKER) (test cbit=882) 2.6 <=5.9 RECOMMENDED COUMADIN/WARFARIN INR THERAPY RANGESSTANDARD DOSE: 2.0 - 3.0 Includes: PROPHYLAXIS forvenous thrombosis, systemic embolization; TREATMENT for venous thrombosis and/or pulmonary embolus.HIGH RISK: Target INR is 2.5-3.5 for patients with mechanical heart valves.CBC (HEMOGRAM ONLY)2016-12-24 05:21:00 Test Item Value Reference Range Comments WHITE BLOOD CELL COUNT (BEAKER) (test cvnj=574) 8.8 K/ L 4.0-10.0 RED BLOOD CELL COUNT (BEAKER) (test wiuf=224) 3.85 M/ L 4.20-5.80 HEMOGLOBIN (BEAKER) (test ontz=585) 12.2 GM/DL 13.0-16.8 HEMATOCRIT (BEAKER) (test ucqi=963) 37.3 % 40.0-50.0 MEAN CORPUSCULAR VOLUME (BEAKER) (test qhvq=021) 96.9 fL 82.0-98.0 MEAN CORPUSCULAR HEMOGLOBIN (BEAKER) (test 31.6 pg 27.0-33.0 yuql=289) MEAN CORPUSCULAR HEMOGLOBIN CONC (BEAKER) (test 32.6 GM/DL 32.0-36.0 mphu=512) RED CELL DISTRIBUTION WIDTH (BEAKER) (test 14.6 % 10.3-14.2 fezq=612) PLATELET COUNT (BEAKER) (test jhor=701) 247 K/CU MM 150-430 MEAN PLATELET VOLUME (BEAKER) (test iqus=907) 7.0 fL 6.5-10.5 NUCLEATED RED BLOOD CELLS (BEAKER) (test 0 /100 WBC 0-0 wthn=812) 0.00VITAMIN D, [id number] 19:10:00 Test Item Value Reference Range Comments VITAMIN D 25-OH (BEAKER) (test smoh=3262) < ng/mL 13.0-47.8 POCT-GLUCOSE [id number] 08:14:00 Test Item Value Reference Range Comments POC-GLUCOSE METER (BEAKER) 225 mg/dL 70-[address] [facility] [address] [facility] (test fzlx=1982) [facility] [address] [id number] 05:51:00 Test Item Value Reference Range Comments MAGNESIUM (BEAKER) (test lvxo=417) 2.0 mg/dL 1.6-2.6 BASIC METABOLIC [id number] 05:51:00 Test Item Value Reference Range Comments SODIUM (BEAKER) (test 137 meq/L 136-145 rsnm=083) POTASSIUM (BEAKER) (test 3.7 meq/L 3.5-5.1 nwjv=389) CHLORIDE (BEAKER) (test 107 meq/L 98-107 bglt=695) CO2 (BEAKER) (test 20 meq/L 22-29 toys=648) BLOOD UREA NITROGEN 19 mg/dL 7-21 (BEAKER) (test nzju=999) CREATININE (BEAKER) (test 0.96 mg/dL 0.57-1.25 iery=634) GLUCOSE RANDOM (BEAKER) 106 mg/dL 70-105 (test cunx=806) CALCIUM (BEAKER) (test 8.7 mg/dL 8.4-10.2 ympd=421) EGFR (BEAKER) (test 75 mL/min/1.73 sq m ESTIMATED GFR IS NOT cvlv=4745) ACCURATE CREATININE CLEARANCE IN PREDICTING GLOMERULAR FILTRATION RATE. ESTIMATED GFR IS NOT APPLICABLE FOR DIALYSIS PATIENTS. PROTHROMBIN [id number] 05:38:00 Test Item Value Reference Range Comments PROTIME (BEAKER) (test bubq=388) 21.9 seconds 11.7-14.7 INR (BEAKER) (test hnyp=181) 1.9 <=5.9 RECOMMENDED COUMADIN/WARFARIN INR THERAPY RANGESSTANDARD DOSE: 2.0 - 3.0 Includes: PROPHYLAXIS forvenous thrombosis, systemic embolization; TREATMENT for venous thrombosis and/or pulmonary embolus.HIGH RISK: Target INR is 2.5-3.5 for patients with mechanical heart valves.CBC (HEMOGRAM ONLY)2016-12-23 05:37:00 Test Item Value Reference Range Comments WHITE BLOOD CELL COUNT (BEAKER) (test ierk=671) 9.4 K/ L 4.0-10.0 RED BLOOD CELL COUNT (BEAKER) (test wtfq=682) 4.14 M/ L 4.20-5.80 HEMOGLOBIN (BEAKER) (test wwuk=841) 13.5 GM/DL 13.0-16.8 HEMATOCRIT (BEAKER) (test ipen=334) 40.4 % 40.0-50.0 MEAN CORPUSCULAR VOLUME (BEAKER) (test mpui=439) 97.6 fL 82.0-98.0 MEAN CORPUSCULAR HEMOGLOBIN (BEAKER) (test 32.6 pg 27.0-33.0 nise=274) MEAN CORPUSCULAR HEMOGLOBIN CONC (BEAKER) (test 33.4 GM/DL 32.0-36.0 fdon=770) RED CELL DISTRIBUTION WIDTH (BEAKER) (test 14.8 % 10.3-14.2 olnj=559) PLATELET COUNT (BEAKER) (test hgza=480) 243 K/CU MM 150-430 MEAN PLATELET VOLUME (BEAKER) (test aihe=989) 7.4 fL 6.5-10.5 NUCLEATED RED BLOOD CELLS (BEAKER) (test 0 /100 WBC 0-0 awpy=536) [id number] 11:58:00 Test Item Value Reference Range Comments RPR SCREEN (BEAKER) (test azet=003) Nonreactive Nonreactive CLOSTRIDIUM DIFFICILE TOXIN [id number] 11:24:00 Test Item Value Reference Range Comments CLOSTRIDIUM DIFFICILE TOXIN, PCR (BEAKER) (test Not Detected Not Detected hinu=1719) This qualitative real-time polymerase chain reaction assay [...] of a positive result is not recommended.HEMOGLOBIN [id number] 08:09:00 Test Item Value Reference Range Comments HEMOGLOBIN A1C (BEAKER) (test lrhd=095) 6.5 % 4.3-6.1 TSH/FREE T4 IF [id number] 07:26:00 Test Item Value Reference Range Comments THYROID STIMULATING HORMONE (BEAKER) (test 1.35 uIU/mL 0.35-4.94 qaet=850) [id number] 07:13:00 Test Item Value Reference Range Comments MAGNESIUM (BEAKER) (test zguj=236) 2.0 mg/dL 1.6-2.6 BASIC METABOLIC [id number] 07:13:00 Test Item Value Reference Range Comments SODIUM (BEAKER) (test 137 meq/L 136-145 ykdg=005) POTASSIUM (BEAKER) (test 3.6 meq/L 3.5-5.1 fgly=286) CHLORIDE (BEAKER) (test 107 meq/L 98-107 esvl=120) CO2 (BEAKER) (test 20 meq/L 22-29 rkdp=781) BLOOD UREA NITROGEN 18 mg/dL 7-21 (BEAKER) (test sfnj=192) CREATININE (BEAKER) (test 0.92 mg/dL 0.57-1.25 jrqd=100) GLUCOSE RANDOM (BEAKER) 97 mg/dL 70-105 (test pysz=023) CALCIUM (BEAKER) (test 8.5 mg/dL 8.4-10.2 pnvt=107) EGFR (BEAKER) (test 79 mL/min/1.73 sq m ESTIMATED GFR IS NOT smpc=5182) ACCURATE CREATININE CLEARANCE IN PREDICTING GLOMERULAR FILTRATION RATE. ESTIMATED GFR IS NOT APPLICABLE FOR DIALYSIS PATIENTS. LIPID [id number] 07:13:00 Test Item Value Reference Range Comments TRIGLYCERIDES (BEAKER) (test zvsh=483) 141 mg/dL CHOLESTEROL (BEAKER) (test xlgs=217) 160 mg/dL HDL CHOLESTEROL (BEAKER) (test fykk=638) 34 mg/dL LDL CHOLESTEROL CALCULATED (BEAKER) (test 98 mg/dL puul=718) Triglyceride Reference Range: Low Risk <150 Borderline [...] Comments WHITE BLOOD CELL COUNT (BEAKER) (test qmyk=903) 7.6 K/ L 4.0-10.0 RED BLOOD CELL COUNT (BEAKER) (test elpx=256) 3.98 M/ L 4.20-5.80 HEMOGLOBIN (BEAKER) (test gtif=468) 13.2 GM/DL 13.0-16.8 HEMATOCRIT (BEAKER) (test hfut=001) 38.8 % 40.0-50.0 MEAN CORPUSCULAR VOLUME (BEAKER) (test cjfo=475) 97.7 fL 82.0-98.0 MEAN CORPUSCULAR HEMOGLOBIN (BEAKER) (test 33.1 pg 27.0-33.0 hkne=424) MEAN CORPUSCULAR HEMOGLOBIN CONC (BEAKER) (test 33.9 GM/DL 32.0-36.0 ggtq=966) RED CELL DISTRIBUTION WIDTH (BEAKER) (test 14.7 % 10.3-14.2 jmon=094) PLATELET COUNT (BEAKER) (test rngc=400) 222 K/CU MM 150-430 MEAN PLATELET VOLUME (BEAKER) (test tyzx=327) 7.2 fL 6.5-10.5 NUCLEATED RED BLOOD CELLS (BEAKER) (test 0 /100 WBC 0-0 prop=435) 0.00PROTHROMBIN [id number] 07:04:00 Test Item Value Reference Range Comments PROTIME (BEAKER) (test mngc=204) 22.9 seconds 11.7-14.7 INR (BEAKER) (test cyjg=883) 2.0 <=5.9 RECOMMENDED COUMADIN/WARFARIN INR THERAPY RANGESSTANDARD DOSE: 2.0 - 3.0 Includes: PROPHYLAXIS forvenous thrombosis, systemic embolization; TREATMENT for venous thrombosis and/or pulmonary embolus.HIGH RISK: Target INR is 2.5-3.5 for patients with mechanical heart valves.PROTHROMBIN [id number] 07:03: 00 Test Item Value Reference Range Comments PROTIME (BEAKER) (test qhow=556) 22.6 seconds 11.7-14.7 INR (BEAKER) (test oqak=019) 2.0 <=5.9 RECOMMENDED COUMADIN/WARFARIN INR THERAPY RANGESSTANDARD DOSE: 2.0 - 3.0 Includes: PROPHYLAXIS forvenous thrombosis, systemic embolization; TREATMENT for venous thrombosis and/or pulmonary embolus.HIGH RISK: Target INR is 2.5-3.5 for patients with mechanical heart valves.VITAMIN [id number] 23:18:00 Test Item Value Reference Range Comments VITAMIN B12 (BEAKER) (test ualn=247) 210 pg/mL 213-816 SEDIMENTATION [id number] 23:06:00 Test Item Value Reference Range Comments SEDIMENTATION RATE, ERYTHROCYTE (BEAKER) (test 29 mm/HR 0-40 fswz=792) B-TYPE NATRIURETIC FACTOR (BNP)2016-12-21 18:19:00 Test Item Value Reference Range Comments B-TYPE NATRIURETIC PEPTIDE (BEAKER) (test 124 pg/mL 0-100 mkwx=622) BASIC METABOLIC [id number] 18:11:00 Test Item Value Reference Range Comments SODIUM (BEAKER) (test 136 meq/L 136-145 wfsg=951) POTASSIUM (BEAKER) (test 4.2 meq/L 3.5-5.1 Specimen slightly xgpp=728) hemolyzed CHLORIDE (BEAKER) (test 107 meq/L 98-107 vbva=458) CO2 (BEAKER) (test 19 meq/L 22-29 zxxx=104) BLOOD UREA NITROGEN 22 mg/dL 7-21 (BEAKER) (test mzno=417) CREATININE (BEAKER) 1.20 mg/dL 0.57-1.25 Specimen slightly (test xzff=290) hemolyzed GLUCOSE RANDOM (BEAKER) 180 mg/dL 70-105 (test obop=153) CALCIUM (BEAKER) (test 8.8 mg/dL 8.4-10.2 kicr=294) EGFR (BEAKER) (test 58 mL/min/1.73 sq m INSUFFICIENT CLINICAL DATA sjbg=7239) TO CALCULATE ESTIMATED GFR. CREATINE KINASE (CK), TOTAL AND [id number] 18:11:00 Test Item Value Reference Range Comments CREATINE KINASE TOTAL (BEAKER) (test hfgf=992) 36 U/L 29-200 CREATINE KINASE-MB (BEAKER) (test wipw=874) 0.5 ng/mL 0.0-6.6 CREATINE KINASE-MB INDEX (BEAKER) (test jofw=155) 1.4 % Effective 05/30/2014: CK-MB Reference Range ChangeNew: 0.0-6.6 Previous: 0.0- 4.9CK-MB Reference Range:<6.7 Normal6.7-10.0 Borderline>10.0 [id number] 18:11:00 Test Item Value Reference Range Comments MAGNESIUM (BEAKER) (test 2.0 mg/dL 1.6-2.6 Specimen slightly hemolyzed oail=193) TROPONIN [id number] 18:11:00 Test Item Value Reference Range Comments TROPONIN I (BEAKER) (test xctn=948) 0.01 ng/mL 0.00-0.03 Effective 05/30/2014: Reference Range [...] renalfailure, acidosis, acute neurological disease, and persistent tachyarrhythmia.[id number] 17:11:00 Test Item Value Reference Range Comments PROTIME (BEAKER) (test vbbv=640) 25.6 seconds 11.7-14.7 INR (BEAKER) (test hbai=954) 2.3 <=5.9 PARTIAL THROMBOPLASTIN TIME (BEAKER) (test 36.5 seconds 22.5-36.0 veuk=016) RECOMMENDED COUMADIN/WARFARIN INR THERAPY RANGESSTANDARD DOSE: 2.0 - 3.0 Includes: PROPHYLAXIS forvenous thrombosis, systemic embolization; TREATMENT for venous thrombosis and/or pulmonary embolus.HIGH RISK: Target INR is 2.5-3.5 for patients with mechanical heart valves.CBC W/PLT COUNT & AUTO [id number] 17:04:00 Test Item Value Reference Range Comments WHITE BLOOD CELL COUNT (BEAKER) (test nmzu=999) 11.9 K/ L 4.0-10.0 RED BLOOD CELL COUNT (BEAKER) (test dadz=935) 4.40 M/ L 4.20-5.80 HEMOGLOBIN (BEAKER) (test lnkt=724) 14.1 GM/DL 13.0-16.8 HEMATOCRIT (BEAKER) (test mshk=029) 42.8 % 40.0-50.0 MEAN CORPUSCULAR VOLUME (BEAKER) (test ypbu=899) 97.1 fL 82.0-98.0 MEAN CORPUSCULAR HEMOGLOBIN (BEAKER) (test 32.0 pg 27.0-33.0 eael=156) MEAN CORPUSCULAR HEMOGLOBIN CONC (BEAKER) (test 33.0 GM/DL 32.0-36.0 xqmg=461) RED CELL DISTRIBUTION WIDTH (BEAKER) (test 14.7 % 10.3-14.2 dgdv=977) PLATELET COUNT (BEAKER) (test xltk=994) 246 K/CU MM 150-430 MEAN PLATELET VOLUME (BEAKER) (test noee=623) 7.2 fL 6.5-10.5 NEUTROPHILS RELATIVE PERCENT (BEAKER) (test 93 % ioar=110) LYMPHOCYTES RELATIVE PERCENT (BEAKER) (test 2 % mrmp=065) MONOCYTES RELATIVE PERCENT (BEAKER) (test 3 % otrg=953) EOSINOPHILS RELATIVE PERCENT (BEAKER) (test 1 % ullx=200) BASOPHILS RELATIVE PERCENT (BEAKER) (test 1 % jkjl=370) NEUTROPHILS ABSOLUTE COUNT (BEAKER) (test K/ L 1.80-8.00 arec=761) LYMPHOCYTES ABSOLUTE COUNT (BEAKER) (test K/ L 1.48-4.50 wphf=042) MONOCYTES ABSOLUTE COUNT (BEAKER) (test K/ L 0.00-1.30 disg=149) EOSINOPHILS ABSOLUTE COUNT (BEAKER) (test K/ L 0.00-0.50 kzpk=208) BASOPHILS ABSOLUTE COUNT (BEAKER) (test K/ L 0.00-0.20 wrqh=243)
[2018-03-10 15:01] LABS: Absolute Lymphocytes (CBC) 1.2 K/uL (0.7-4.9); Absolute Monocytes 0.7 K/uL (0.1-1.3); Absolute Neutrophil 6.2 K/uL (1.8-8.0); Basophils % 0.9 % (0-1.3); Eosinophils % 2.7 % (0-4.4); Hematocrit 38.5 % (39.6-49.0); MCH 34.5 pg (27.0-35.0); MCV 98.7 fL (80-100); MPV 8.1 fL (7.6-11.3); Monocytes % 8.5 % (3.3-12.3)
[2018-03-10 15:11] LABS: Protime INR 1.13
[2018-03-10 15:25] LABS: BUN Blood Urea Nitrogen 23 mg/dL (7-18); Bicarbonate 28 mmol/L (21-32); CKMB Creatine Kinase MB < 1.0 ng/mL (0.3-3.6); Creatine Phosphokinase 44 U/L (39-308); Glucose Level 85 mg/dL (74-106); Magnesium 2.5 mg/dL (1.8-2.4); NT PRO-BNP 445 pg/mL (<450); Potassium 4.5 mmol/L (3.5-5.1); Sodium Level 141 mmol/L (136-145)
--- NOTE | 2018-03-10 15:31 | RAD REPORT ---
EXAM DESCRIPTION: RAD - Chest Single View - 03/10/2018 3:22 pm CLINICAL HISTORY: CHEST PAIN<Reason For Exam>CHEST PAIN COMPARISON: Chest Single View dated 01/25/2018; CHEST PA AND LAT 2 VIEW dated 06/22/2015; CHEST PA AN D LAT 2 VIEW dated 08/29/2014; CHEST PA AND LAT 2 VIEW dated 12/04/2012<Comparisons> TECHNIQUE: AP portable chest image was obtained 1519 hours . FINDINGS: Lung volumes are relatively low. Interstitial markings are similar to the comparison. No p eripheral mass or consolidation. Heart size and vasculature are stable. No measurable pleural effusio n and no pneumothorax. No gross bony abnormality seen. No acute aortic findings suspected. IMPRESSION: No acute cardiopulmonary process. No significant change from comparison.
--- NOTE | 2018-03-10 15:54 | EDPHYS ---
Physician Documentation [facility] Name: Luis Schumacher Age: 82 yrs Sex: Male : 1935 Arrival Date: 03/10/2018 Time: 14:25 Bed 28 Private MD: ED Physician Valentín Kruse HPI: 03/10 15:30 This 82 yrs old Male presents to ER via EMS with complaints of chest pain. kb 15:30 The patient or guardian reports chest pain that is located primarily in the substernal kb area. Onset: just prior to arrival. The pain does not radiate. Associated signs and symptoms: Pertinent positives: dizziness, palpitations, shortness of breath. The chest pain is described as aching. Duration: The patient or guardian reports a single episode, that is still ongoing. Modifying factors: The symptoms are alleviated by nothing. the symptoms are aggravated by nothing. Severity of pain: At its worst the pain was moderate in the emergency department the pain has improved mildly. The patient has not experienced similar symptoms in the past. The patient has not recently seen a physician. Pt reports chest pain, shortness of breath, dizziness, and palpitations service captain. Symptoms got better after nitro. EMS reports HR of 120 service captain. . Historical: - Allergies: 14:42 PENICILLINS; aj1 - Home Meds: 14:42 levothyroxine 50 mcg tab 1 tab once daily [Active]; amlodipine 10 mg tab 1 tab once aj1 daily [Active]; Vitamin B-12 100 mcg Oral tab daily [Active]; omeprazole 40 mg Oral cpDR 1 cap once daily [Active]; metoprolol tartrate 25 mg Oral tab 1 tab once daily [Active]; aspirin 81 mg Oral chew 1 tab once daily [Active]; irbesartan 300 mg oral tab 1 tab once daily [Active]; simvastatin 40 mg Oral tab 1 tab once daily [Active]; Vitamin D3 1,000 unit oral tab daily [Active]; 14:48 warfarin 5 mg Oral tab 1 tab once daily [Active]; aj1 - PMHx: 14:42 Carotid artery blockage; CVA; Hypertension; Parkinsons; DVT; Pacemaker; aj1 - Immunization history:: Flu vaccine is not up to date. - Social history:: Smoking status: Patient/guardian denies using tobacco. - Ebola Screening: : Patient denies travel to an Ebola-affected area in the 21 days before illness onset. ROS: 15:30 Constitutional: Negative for fever, chills, and weight loss, Abdomen/GI: Negative for kb abdominal pain, nausea, vomiting, diarrhea, and constipation, Back: Negative for injury and pain, : Negative for injury, bleeding, discharge, and swelling, MS/Extremity: Negative for injury and deformity, Skin: Negative for injury, rash, and discoloration. 15:30 Cardiovascular: Positive for chest pain, palpitations, Negative for edema, orthopnea, paroxysmal nocturnal dyspnea. 15:30 Respiratory: Positive for shortness of breath. 15:30 Neuro: Positive for dizziness, Negative for altered mental status, gait disturbance, headache, hearing loss, loss of consciousness, numbness, seizure activity, speech changes, syncope, near syncope, tingling, tinnitus, tremor, visual changes, weakness. Exam: 15:30 Constitutional: This is a well developed, well nourished patient who is awake, alert, kb and in no acute distress. Head/Face: Normocephalic, atraumatic. Chest/axilla: Normal chest wall appearance and motion. Nontender with no deformity. No lesions are appreciated. Cardiovascular: Regular rate and rhythm with a normal S1 and S2. No gallops, murmurs, or rubs. Normal PMI, no JVD. No pulse deficits. Respiratory: Lungs have equal breath sounds bilaterally, clear to auscultation and percussion. No rales, rhonchi or wheezes noted. No increased work of breathing, no retractions or nasal flaring. Abdomen/GI: Soft, non-tender, with normal bowel sounds. No distension or tympany. No guarding or rebound. No evidence of tenderness throughout. Skin: Warm, dry with normal turgor. Normal color with no rashes, no lesions, and no evidence of cellulitis. MS/ Extremity: Pulses equal, no cyanosis. Neurovascular intact. Full, normal range of motion. Vital Signs: 14:42 BP 122 / 66; Pulse 72; Resp 20; Pulse Ox 96% on R/A; Weight 111.13 kg; Height 6 ft. 2 aj1 in. (187.96 cm); 15:45 BP 121 / 64; Pulse 70; Resp 17; Pulse Ox 97% on R/A; aj1 16:41 BP 129 / 71; Pulse 70; Resp 20; Pulse Ox 96% on R/A; aj1 17:58 BP 133 / 62; Pulse 72; Resp 18; Pulse Ox 97% on R/A; aj1 14:42 Body Mass Index 31.46 (111.13 kg, 187.96 cm) aj1 MDM: 14:26 Patient medically screened. kb 15:30 The patient was not given aspirin in the Emergency Department. Administered by EMS. kb Data reviewed: vital signs, nurses notes. 15:53 Data interpreted: Pulse oximetry: on room air is 96 %. Interpretation: normal. kb Counseling: I had a detailed discussion with the patient and/or guardian regarding: the historical points, exam findings, and any diagnostic results supporting the discharge/admit diagnosis, lab results, radiology results, the need for further work-up and treatment in the hospital. Physician consultation: Kd Torres MD was contacted at 15:53, regarding admission, to the telemetry unit. patient's condition, and will see patient in inpatient room. 03/10 14:30 Order name: Basic Metabolic Panel; Complete Time: 15:26 kb 03/10 14:30 Order name: CBC with Diff; Complete Time: 15:07 kb 03/10 14:30 Order name: Ckmb; Complete Time: 15:26 kb 03/10 14:30 Order name: CPK; Complete Time: 15:26 kb 03/10 14:30 Order name: Magnesium; Complete Time: 15:26 kb 03/10 14:30 Order name: NT PRO-BNP; Complete Time: 15:26 kb 03/10 14:30 Order name: PT-INR; Complete Time: 15:20 kb 03/10 14:30 Order name: Ptt, Activated; Complete Time: 15:20 kb 03/10 14:30 Order name: Troponin (emerg Dept Use Only); Complete Time: 15:26 kb 03/10 14:30 Order name: XRAY Chest (1 view); Complete Time: 15:35 kb 03/10 14:30 Order name: EKG; Complete Time: 14:31 kb 03/10 14:30 Order name: Cardiac monitoring; Complete Time: 14:33 kb 03/10 14:30 Order name: EKG - Nurse/Tech; Complete Time: 14:33 kb 03/10 14:30 Order name: IV Saline Lock; Complete Time: 14:34 kb 03/10 14:30 Order name: Labs collected and sent; Complete Time: 14:34 kb 03/10 14:30 Order name: O2 Per Protocol; Complete Time: 14:34 kb 03/10 14:30 Order name: O2 Sat Monitoring; Complete Time: 14:34 kb Administered Medications: No medications were administered Disposition: 03/11 08:08 Co-signature as Attending Physician, Valentín Kruse MD. rn Disposition: 03/10/18 15:53 Hospitalization ordered by Kd Torres for Observation. Preliminary diagnosis is Chest pain, unspecified. - Bed requested for Telemetry/MedSurg (observation). - Status is Observation. aj1 - Condition is Stable. - Problem is new. - Symptoms have improved. UTI on Admission? No Signatures: Dispatcher [employer] EDMS Evelia Khan, CHELSEA-C PRINTED CIRCUIT BOARD PCB DESIGNER-CkMaria Del Carmen Thorpe RN RN aj1 Paulette Flores RN RN Valentín Armstrong MD MD popped corn oven attendant: (The following items were deleted from the chart) 03/10 14:49 14:42 Home Meds: warfarin 5 mg Oral tab 1 tab once daily on thursday, , and thursday; 14:49 14:42 Home Meds: warfarin 2 mg Oral tab 1 tab once daily on Thursday, Thursday, Thursday, and Thursday; 16: 15:53 Hospitalization Ordered by Kd Torres MD for Observation. Preliminary diagnosis kl is Chest pain, unspecified. Bed requested for Telemetry/MedSurg (observation). Status is Observation. Condition is Stable. Problem is new. Symptoms have improved. UTI on Admission? No. kb 16:38 16:29 03/10/2018 15:53 Hospitalization Ordered by Kd Torres MD for Observation. kl Preliminary diagnosis is Chest pain, unspecified. Bed requested for Telemetry/MedSurg (observation). Status is Observation. Condition is Stable. Problem is new. Symptoms have improved. UTI on Admission? No. kl 18:18 16:38 03/10/2018 15:53 Hospitalization Ordered by Kd Torres MD for Observation. aj1 Preliminary diagnosis is Chest pain, unspecified. Bed requested for Telemetry/MedSurg (observation). Status is Observation. Condition is Stable. Problem is new. Symptoms have improved. UTI on Admission? No. kl
--- NOTE | 2018-03-10 15:54 | ER ---
Nurse's Notes [facility] Name: Luis Schumacher Age: 82 yrs Sex: Male : 1935 Arrival Date: 03/10/2018 Time: 14:25 Bed 28 Private MD: Diagnosis: Chest pain, unspecified Presentation: 03/10 14:35 Presenting complaint: states: He began having chest pain at 1330 today, she aj1 checked his blood pressure and it was 122/105 and his heart rate was 122. On EMS arrival his EKG was paced in the 80's, but went up to the 120's en route. Patient was given 324 of Aspirin and 1 dose of Nitro by EMS. Patient reports SOB, palpitations, dizziness, and substernal chest pain. Patient's reports that patient has some difficulty speaking and left sided weakness that are residuals from his previous strokes. Transition of care: patient was not received from another setting of care. Onset of symptoms was March 10, 2018 at 13:30. Risk Assessment: Do you want to hurt yourself or someone else? Patient reports no desire to harm self or others. Initial Sepsis Screen: Does the patient meet any 2 criteria? No. Patient's initial sepsis screen is negative. Does the patient have a suspected source of infection? No. Patient's initial sepsis screen is negative. Care prior to arrival: None. 14:35 Method Of Arrival: EMS: [facility] aj1 14:35 Acuity: MARSHA 3 aj1 Triage Assessment: 14:42 General: Appears in no apparent distress. comfortable, Behavior is calm, cooperative, aj1 appropriate for age. Pain: Complains of pain in mid-sternal area Pain does not radiate. Unable to use pain scale. Patient has some dysphagia related to previous stroke. Historical: - Allergies: 14:42 PENICILLINS; aj1 - Home Meds: 14:42 levothyroxine 50 mcg tab 1 tab once daily [Active]; amlodipine 10 mg tab 1 tab once aj1 daily [Active]; Vitamin B-12 100 mcg Oral tab daily [Active]; omeprazole 40 mg Oral cpDR 1 cap once daily [Active]; metoprolol tartrate 25 mg Oral tab 1 tab once daily [Active]; aspirin 81 mg Oral chew 1 tab once daily [Active]; irbesartan 300 mg oral tab 1 tab once daily [Active]; simvastatin 40 mg Oral tab 1 tab once daily [Active]; Vitamin D3 1,000 unit oral tab daily [Active]; 14:48 warfarin 5 mg Oral tab 1 tab once daily [Active]; aj1 - PMHx: 14:42 Carotid artery blockage; CVA; Hypertension; Parkinsons; DVT; Pacemaker; aj1 - Immunization history:: Flu vaccine is not up to date. - Social history:: Smoking status: Patient/guardian denies using tobacco. - Ebola Screening: : Patient denies travel to an Ebola-affected area in the 21 days before illness onset. Screenin:44 Abuse screen: Denies threats or abuse. Denies injuries from another. Nutritional aj1 screening: No deficits noted. Tuberculosis screening: No symptoms or risk factors identified. 17:58 Fall Risk None identified. aj1 Assessment: 14:44 General: Appears in no apparent distress. comfortable, Behavior is calm, cooperative, aj1 appropriate for age. Pain: Complains of pain in mid-sternal area. Neuro: Level of Consciousness is awake, alert, obeys commands, Oriented to person, place, time, situation, Towboat Pilot are weak on left residual from previous CVA according to . Moves all extremities. Weakness in left arm(s) leg(s) that is residual from previous CVA. Facial symmetry appears normal. Cardiovascular: Reports chest pain, palpitations, shortness of breath, Heart tones S1 S2 present Patient's skin is warm and dry. Rhythm is paced in the 70's and 80's Chest pain is located in substernal area began 1 hour prior to arrival episodes are continuous. Respiratory: Reports shortness of breath Airway is patent Respiratory effort is even, unlabored, Respiratory pattern is regular, symmetrical, Breath sounds are clear bilaterally. GI: No signs and/or symptoms were reported involving the gastrointestinal system. : No signs and/or symptoms were reported regarding the genitourinary system. EENT: No signs and/or symptoms were reported regarding the EENT system. Derm: No signs and/or symptoms reported regarding the dermatologic system. Skin is pink, warm \T\ dry. normal. Musculoskeletal: No signs and/or symptoms reported regarding the musculoskeletal system. Circulation, motion, and sensation intact. 15:45 Reassessment: Patient appears in no apparent distress at this time. No changes from aj1 previously documented assessment. Patient and/or family updated on plan of care and expected duration. Pain level reassessed. Patient is alert, oriented x 3, equal unlabored respirations, skin warm/dry/pink. 16:35 Reassessment: Attempted to call report, spoke with VINCENT Wang for 2nd floor. States aj1 that patient room is not ready and she will call back when room is cleaned. 17:56 Reassessment: Patient and/or family updated on plan of care and expected duration. Pain aj1 level reassessed. General: Appears in no apparent distress. comfortable, Behavior is calm, cooperative, appropriate for age. Pain:. Neuro: Level of Consciousness is awake, alert, obeys commands, Moves all extremities. Facial symmetry appears normal. Cardiovascular: Patient's skin is warm and dry. Rhythm is paced at 73. Respiratory: Airway is patent Respiratory effort is even, unlabored, Respiratory pattern is regular, symmetrical. Derm: Skin is pink, warm \T\ dry. normal. Musculoskeletal: Circulation, motion, and sensation intact. Vital Signs: 14:42 BP 122 / 66; Pulse 72; Resp 20; Pulse Ox 96% on R/A; Weight 111.13 kg; Height 6 ft. 2 aj1 in. (187.96 cm); 15:45 BP 121 / 64; Pulse 70; Resp 17; Pulse Ox 97% on R/A; aj1 16:41 BP 129 / 71; Pulse 70; Resp 20; Pulse Ox 96% on R/A; aj1 17:58 BP 133 / 62; Pulse 72; Resp 18; Pulse Ox 97% on R/A; aj1 14:42 Body Mass Index 31.46 (111.13 kg, 187.96 cm) aj1 ED Course: 14:25 Patient arrived in ED. aj 14:26 Evelia [facility] F[facility]-C [facility]. kb 14:26 Valentín Kruse MD is Attending Physician. kb 14:29 EKG done, by bio medical technician. reviewed by Evelia MASTERS. dt2 14:33 Maria Del Carmen Wan, YOGESH is Primary Nurse. aj1 14:38 Triage completed. aj1 14:42 Arm band placed on. aj1 14:44 No provider procedures requiring assistance completed. aj1 14:44 Patient has correct armband on for positive identification. Bed in low position. Call aj1 light in reach. Side rails up X 1. sales process manager on. Pulse ox on. NIBP on. 14:45 Initial lab(s) drawn, by me, sent to lab. Inserted saline lock: 20 gauge in left jp3 antecubital area, using aseptic technique. Blood collected. 14:53 Warm blanket given. jp3 14:54 Basic Metabolic Panel Sent. jp3 14:54 CBC with Diff Sent. jp3 14:54 Ckmb Sent. jp3 14:54 CPK Sent. jp3 14:54 Magnesium Sent. jp3 14:54 PT-INR Sent. jp3 14:54 Ptt, Activated Sent. jp3 14:54 Troponin (emerg Dept Use Only) Sent. jp3 15:20 X-ray completed. Portable x-ray completed in exam room. Patient tolerated procedure bb2 well. 15:20 XRAY Chest (1 view) In Process Unspecified. EDMS 15:53 Kd Torres MD is Hospitalizing Provider. kb 17:58 Patient admitted, IV remains in place. aj1 Administered Medications: No medications were administered Outcome: 15:53 Decision to Hospitalize by Provider. kb 17:59 Admitted to Tele accompanied by tech, via wheelchair, room 222, with chart, Report aj1 called to YOGESH Wolfe on 2nd floor 17:59 Condition: stable 17:59 Discharge instructions given to patient, family, Instructed on the need for admit, Demonstrated understanding of instructions. 18:18 Patient left the ED. aj1 Signatures: Dispatcher [employer] EDOK Evelia Khan, MULTIPLEX OPERATOR-C MULTIPLEX OPERATOR-Maria Del Carmen Oswald RN RN ajKeri Cabral, YOGESH RN Melanie Atkinson bb2 Rosalie Sandra dt2 Parth Hickey jp3 Corrections: (The following items were deleted from the chart) 14:49 14:42 Home Meds: warfarin 5 mg Oral tab 1 tab once daily on thursday, , and 1 thursday; aj1 14:49 14:42 Home Meds: warfarin 2 mg Oral tab 1 tab once daily on Thursday, Thursday, Thursday, and Thursday; aj1
--- NOTE | 2018-03-10 16:15 | EKG ---
Test Date: 2018-03-10 Test Time: 14:17:26 Parking Control Officer: KEVIN-Sharron MEASUREMENT RESULTS: Intervals: Rate: 83 AL: QRSD: 132 QT: 400 QTc: 470 [place]: P: AL: QRS: -53 T: 125 INTERPRETIVE STATEMENTS: Electronic ventricular pacemaker Compared to ECG 01/25/2018 12:25:32 No significant changes Electronically Signed On 03-10-18 16:14:17 CDT by Nahid Maurer
[2018-03-10] MEDS ORDERED: ACETAMINOPHEN 500 MG TAB PO PRN (17:57)
[2018-03-10 19:38] VITALS: BMI 28.0
[2018-03-11 06:25] LABS: Absolute Lymphocytes (CBC) 1.6 K/uL (0.7-4.9); Absolute Monocytes 0.8 K/uL (0.1-1.3); Absolute Neutrophil 5.2 K/uL (1.8-8.0); Basophils % 0.9 % (0-1.3); Eosinophils % 6.5 % (0-4.4); Hematocrit 36.6 % (39.6-49.0); Lymphocytes % 19.1 % (15.3-44.8); MCH 34.5 pg (27.0-35.0); MCV 97.7 fL (80-100); Monocytes % 10.1 % (3.3-12.3); RBC Red Blood Cell Count 3.74 M/uL (4.33-5.43)
[2018-03-11] MEDS ORDERED: PNEUMOCOCCAL VACCINE 0.5 ML IMVAC ONE (08:00)
[2018-03-11] MEDS ORDERED: METOPROLOL XL 25 MG TAB PO SCH (09:00)
[2018-03-11] MEDS ORDERED: ASPIRIN EC 81 MG TAB PO SCH (09:00)
[2018-03-11] MEDS ORDERED: DOCOSAHEXANOIC AC/EPA 1000 MG PO SCH (09:00)
[2018-03-11] MEDS ORDERED: AMLODIPINE 10 MG TAB PO SCH (09:00)
[2018-03-11] MEDS ORDERED: ASPIRIN 81 MG CHEWABLE TABLET PO SCH (09:00)
[2018-03-11] MEDS ORDERED: MAGNESIUM OXIDE 400 MG TAB PO SCH (09:00)
[2018-03-11] MEDS ORDERED: IRBESARTAN 150 MG TAB PO SCH (09:00)
[2018-03-11 09:39] VITALS: O2SAT 98
[2018-03-11 09:45] VITALS: BP 124/64
[2018-03-11 10:47] VITALS: TEMP 97.7
--- NOTE | 2018-03-11 16:28 | EKG ---
Test Date: 2018-03-11 Test Time: 09:46:27 Barrel Maker: JUSTEN MEASUREMENT RESULTS: Intervals: Rate: 70 [place]: QRSD: 148 QT: 428 QTc: 462 [place]: P: VA: QRS: -61 T: 123 INTERPRETIVE STATEMENTS: Electronic ventricular pacemaker Compared to ECG 03/10/2018 14:17:26 No significant changes Electronically Signed On 03-11-18 16:26:10 CDT by Nahid Maurer
[2018-03-11] MEDS ORDERED: WARFARIN SODIUM 2.5 MG TAB PO SCH (17:00)
--- NOTE | 2018-03-11 19:44 | HP ---
Date of Admission: 03/10/2018 Chief Complaint: Chest pain. History Of Present Illness: An 82-year-old male was brought to the emergency room with chest pain. The patient had evaluation done. There was no evidence of elevation of troponin. The patient is adm itted for observation. There is no history of fever, chills, rigors, or other systemic symptoms. Th e patient is known to have history of hypertension, hyperlipidemia, coronary artery disease. The pat ient also has a permanent pacemaker. Past Medical History: Relevant to the present symptoms. He has history of angioplasty, femoral bypa ss. Other surgical history is history of prostatectomy. Family History: Noncontributory. Personal History: He is allergic to penicillin. Home Medicines: Please refer to the chart. Other medical problems unrelated to the symptoms include history of Parkinson disease. Review of Systems: No history of fever, chills, rigors. Physical Examination: General: Revealed 82-year-old male with obvious Parkinson's tremors. HEENT: Negative. Neck: Supple. JVD negative. Chest: Clear. Heart: Irregularity noted. Abdomen: Soft. Extremities: No edema. Neurological: Evidence of Parkinson disease with spasticity and tremors. Laboratory Data: Troponin normal. Chem profile, otherwise negative including CPK-MB. Assessment: 1.Chest pain. 2.Known coronary artery disease. 3.Permanent pacemaker. 4.Hypertension. 5.Hyperlipidemia. 6.Parkinson disease. 7.History of prostatectomy. Plan: The patient does not have any evidence of myocardial injury. He sees Dr. Bowman in [place]. I will talk to him and see whether he would like any workup done, however, family wants to go back to Dr. Bowman, so no cardiology consultation has been done or workup initiated. GOMEZ/LITAL Voice ID: [id number]
[2018-03-11] MEDS ORDERED: ATORVASTATIN 20 MG TAB PO SCH (21:00)
[2018-03-12] MEDS ORDERED: LEVOTHYROXINE SOD 0.05 MG TABLET PO SCH (06:00)
== END 2018-03-11 13:09 | disposition home or self-care (01) ==
LOC: ER 14:19 → ERHOLD 15:54 → 2ND 17:53
PROVIDERS: ADMIT Internal Medicine; ATTEND Internal Medicine
DX: R07.9 Chest pain, unspecified (principal); I10 Essential (primary) hypertension; E78.5 Hyperlipidemia, unspecified; I25.10 Atherosclerotic heart disease of native coronary artery without angina pectoris; Z98.61 Coronary angioplasty status; Z95.0 Presence of cardiac pacemaker; Z88.0 Allergy status to penicillin; G20 Parkinson's disease
CPT/HCPCS: 36415; 71045; 80048; 82550; 82553; 83735; 83880; 84484; 85025; 85610; 85730; 90670; 93005; 99285; G0378

== ENCOUNTER 2018-06-19 22:41 | Emergency (ER) | payer OTHER, MEDICARE ==
--- OUTSIDE RECORDS SUMMARY | 2018-06-19 22:43 | XMS REPORT | Clinical Summary ---
:1935 Author Organization [facility] Address [address] [place] [address] Care Team Providers Name Role Phone Sharpless Primary Care Provider Tra Warner Unavailable Allergies Active Allergy Reactions Severity Noted Date Comments Clonazepam 12/21/2016 Zombie state Galantamine 12/21/2016 Got more confused Memantine 12/21/2016 Got more confused Penicillins Other (See Comments) High 12/21/2016 Unknown reaction Medications Medication Sig Dispensed Refills Start Date End Date Status warfarin (COUMADIN) Take 2.5 mg by 0 Active 2.5 MG tablet mouth daily. simvastatin (ZOCOR) 40 Take 40 mg by 0 Active MG tablet mouth nightly. irbesartan (AVAPRO) Take 300 mg by 0 Active 300 MG tablet mouth nightly. levothyroxine Take 50 mcg by 0 Active (SYNTHROID, mouth Every LEVOTHROID) 50 MCG morning on an tablet empty stomach. aspirin 81 MG chewable Take 81 mg by 0 Active tablet mouth daily. metoprolol (TOPROL-XL) Take 25 mg by 0 Active 25 MG 24 hr tablet mouth daily. magnesium oxide 500 mg Take 500 mg by 0 Active Cap mouth daily. cyanocobalamin Take 1 tablet 30 tablet 0 01/02/2017 01/02/2018 (VITAMIN B-12) 100 MCG (100 mcg total) tablet by mouth daily. 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 Acute CVA (cerebrovascular accident) 12/21/2016 Altered mental status 12/21/2016 Cancer Coronary artery disease Parkinson's disease Thyroid disease Asthma Arthritis Pacemaker Atrial fibrillation Family History Medical History Relation Name Comments Stroke Father No Known Problem Mother Relation Name Status Comments Father Mother Social History Tobacco Use Types Packs/Day Years Used Date Former Smoker Comments: Quit 15 years ago Alcohol Use Drinks/Week oz/Week Comments No Sex Assigned at Date Recorded Not on file Job Start Date Occupation Industry Not on file Not on file Not on file Travel History Travel Start Travel End No recent travel history available. Last Filed Vital Signs Not on file Plan of Treatment Not on file Results Not on fileafter 06/18/2017 Insurance Payer Benefit Plan / Group Subscriber ID Type Phone Address MEDICARE MEDICARE A B xxxxxxxxxx Medicare MCR SUPPLEMENT/INDIVIDUAL AARP/[facility] xxxxxxxxxxx [facility] Advance Directives For more information, please contact:[address] [phone] Code Status Date Activated Date Inactivated Comments Full Code 12/21/2016 6:20 PM 01/02/2017 7:03 PM This code status was determined by: Patient
--- OUTSIDE RECORDS SUMMARY | 2018-06-19 22:43 | XMS REPORT | Continuity of Care Document ---
:1935 Author Organization Interface Problems Problem Status Onset Date Classification Date Comments Source Reported Medications Medication Details Route Status Patient Ordering Order Source Instructions Provider Date Allergies, Adverse Reactions, Alerts Substance Category Reaction Severity Reaction Status Date Comments Source type Reported Immunizations Immunization Date Given Site Status Last Updated Comments Source Results Order Results Value Reference Date Interpretation Comments Source Name Range Vital Signs Vital Sign Value Date Comments Source Encounters Location Location Encounter Encounter Reason Attending ADM DC Status Source Details Type Number For Provider Date Date Visit Outpatient [id number] JULIANO 06/16 [facility] Outpatient [id number] JULIANO 07/15 [facility] Procedures Procedure Code Date Perfomer Comments Source
--- OUTSIDE RECORDS SUMMARY | 2018-06-19 22:44 | XMS REPORT ---
:1935 [facility] Address [address] [place] [address] Care Team Providers Name Role Phone NAV [...] Value Reference Range Comments SCAN RESULT (test prvz=[id number]) TISSUE [id number] 11:00:00Surgical Pathology Report Case: [id number] Authorizing Provider: Dionicio Wilkes MD Collected: 01/01/2017 1409 Ordering Location: [address] Received: 01/01/2017 1533 Service Pathologist: Franny Chandler MD Specimen: Small Bowel, NOS, Random small bowel bx , r/o celiac SMALL BOWEL, BIOPSY: - SMALL BOWEL MUCOSA WITH FOCAL SURFACE EROSION AND REACTIVE EPITHELIAL CHANGES - NEGATIVE FOR VILLOUS BLUNTING - NEGATIVE FOR SIGNIFICANT INCREASE OF INTRAEPITHELIAL LYMPHOCYTESElectronically signed by Franny Chandler MD on 2016 at 11:00 AMNo gastric metaplasia is identified.[id number], rule out celiacRandom small bowel biopsy Received in formalin labeled "small bowel" are six fragments measuring 0.8 x 0.6 x 0.1 cm in aggregate. The specimen is entirely submitted in A1. DB/ewPerformed.MISCELLANEOUS LAB [id number] 07:23 :00 Test Item Value Reference Range Comments SCAN RESULT (test xxcj=[id number]) PROTHROMBIN TIME/[id number] 06:32:00 Test Item Value Reference Range Comments PROTIME (BEAKER) (test amzd=609) 15.5 seconds 11.7-14.7 INR (BEAKER) (test epcf=135) 1.2 <=5.9 RECOMMENDED COUMADIN/WARFARIN INR THERAPY RANGESSTANDARD DOSE: 2.0 - 3.0 Includes: PROPHYLAXIS forvenous thrombosis, systemic embolization; TREATMENT for venous thrombosis and/or pulmonary embolus.HIGH RISK: Target INR is 2.5-3.5 for patients with mechanical heart valves.Please draw daily INR whileon warfarin. Thanks!COMPREHENSIVE METABOLIC [id number] 05:45:00 Test Item Value Reference Range Comments TOTAL PROTEIN (BEAKER) 6.1 gm/dL 6.0-8.3 (test imji=312) ALBUMIN (BEAKER) (test 3.3 g/dL 3.5-5.0 mefh=2030) ALKALINE PHOSPHATASE 90 U/L 40-150 (BEAKER) (test dpfl=255) BILIRUBIN TOTAL (BEAKER) 1.0 mg/dL 0.2-1.2 (test fusq=393) SODIUM (BEAKER) (test 135 meq/L 136-145 yzfm=284) POTASSIUM (BEAKER) (test 4.1 meq/L 3.5-5.1 igzv=889) CHLORIDE (BEAKER) (test 112 meq/L 98-107 ctxr=661) CO2 (BEAKER) (test 16 meq/L 22-29 asvv=248) BLOOD UREA NITROGEN 15 mg/dL 7-21 (BEAKER) (test qoza=076) CREATININE (BEAKER) (test 0.92 mg/dL 0.57-1.25 mnru=143) GLUCOSE RANDOM (BEAKER) 99 mg/dL 70-105 (test dlqu=636) CALCIUM (BEAKER) (test 8.6 mg/dL 8.4-10.2 lpha=568) AST (SGOT) (BEAKER) (test 18 U/L 5-34 goiv=934) ALT (SGPT) (BEAKER) (test 26 U/L 6-55 sowt=243) EGFR (BEAKER) (test 79 mL/min/1.73 sq m ESTIMATED GFR IS NOT cchi=8632) ACCURATE CREATININE CLEARANCE IN PREDICTING GLOMERULAR FILTRATION RATE. ESTIMATED GFR IS NOT APPLICABLE FOR DIALYSIS PATIENTS. [id number] 05:33:00 Test Item Value Reference Range Comments PARTIAL THROMBOPLASTIN TIME (BEAKER) (test 32.4 seconds 22.5-36.0 nnao=022) Please draw daily INR while on warfarin. Thanks!PROTHROMBIN TIME/[id number] 05:32:00 Test Item Value Reference Range Comments PROTIME (BEAKER) (test geld=980) 17.0 seconds 11.7-14.7 INR (BEAKER) (test zehn=200) 1.4 <=5.9 RECOMMENDED COUMADIN/WARFARIN INR THERAPY RANGESSTANDARD DOSE: 2.0 - 3.0 Includes: PROPHYLAXIS forvenous thrombosis, systemic embolization; TREATMENT for venous thrombosis and/or pulmonary embolus.HIGH RISK: Target INR is 2.5-3.5 for patients with mechanical heart valves.Please draw daily INR whileon warfarin. Thanks!CBC W/PLT COUNT & AUTO [id number] 05:21:00 Test Item Value Reference Range Comments WHITE BLOOD CELL COUNT (BEAKER) (test kgqh=683) 9.0 K/ L 4.0-10.0 RED BLOOD CELL COUNT (BEAKER) (test ndgt=303) 4.09 M/ L 4.20-5.80 HEMOGLOBIN (BEAKER) (test ucst=926) 13.6 GM/DL 13.0-16.8 HEMATOCRIT (BEAKER) (test jxah=710) 39.4 % 40.0-50.0 MEAN CORPUSCULAR VOLUME (BEAKER) (test cyxg=169) 96.3 fL 82.0-98.0 MEAN CORPUSCULAR HEMOGLOBIN (BEAKER) (test 33.3 pg 27.0-33.0 rxbx=633) MEAN CORPUSCULAR HEMOGLOBIN CONC (BEAKER) (test 34.6 GM/DL 32.0-36.0 rlrz=814) RED CELL DISTRIBUTION WIDTH (BEAKER) (test 12.8 % 10.3-14.2 epek=127) PLATELET COUNT (BEAKER) (test uajz=481) 300 K/CU MM 150-430 MEAN PLATELET VOLUME (BEAKER) (test qviy=705) 6.7 fL 6.5-10.5 NUCLEATED RED BLOOD CELLS (BEAKER) (test 0 /100 WBC 0-0 qyej=224) NEUTROPHILS RELATIVE PERCENT (BEAKER) (test 62 % gxob=732) LYMPHOCYTES RELATIVE PERCENT (BEAKER) (test 23 % ywhe=466) MONOCYTES RELATIVE PERCENT (BEAKER) (test 9 % laai=925) EOSINOPHILS RELATIVE PERCENT (BEAKER) (test 5 % ywrb=276) BASOPHILS RELATIVE PERCENT (BEAKER) (test 1 % zbzy=711) NEUTROPHILS ABSOLUTE COUNT (BEAKER) (test 5.57 K/ L 1.80-8.00 bbmg=878) LYMPHOCYTES ABSOLUTE COUNT (BEAKER) (test 2.07 K/ L 1.48-4.50 hgwc=503) MONOCYTES ABSOLUTE COUNT (BEAKER) (test 0.84 K/ L 0.00-1.30 bsjc=872) EOSINOPHILS ABSOLUTE COUNT (BEAKER) (test 0.42 K/ L 0.00-0.50 hpvm=291) BASOPHILS ABSOLUTE COUNT (BEAKER) (test 0.05 K/ L 0.00-0.20 zvac=450) 0.00PROTHROMBIN TIME/[id number] 05:22:00 Test Item Value Reference Range Comments PROTIME (BEAKER) (test ngeb=174) 22.5 seconds 11.7-14.7 INR (BEAKER) (test ilmr=127) 2.0 <=5.9 RECOMMENDED COUMADIN/WARFARIN INR THERAPY RANGESSTANDARD DOSE: 2.0 - 3.0 Includes: PROPHYLAXIS forvenous thrombosis, systemic embolization; TREATMENT for venous thrombosis and/or pulmonary embolus.HIGH RISK: Target INR is 2.5-3.5 for patients with mechanical heart valves.Please draw daily INR whileon warfarin. Thanks!COMPREHENSIVE METABOLIC [id number] 05:16:00 Test Item Value Reference Range Comments TOTAL PROTEIN (BEAKER) 6.0 gm/dL 6.0-8.3 (test hiay=806) ALBUMIN (BEAKER) (test 3.3 g/dL 3.5-5.0 vbtq=4833) ALKALINE PHOSPHATASE 84 U/L 40-150 (BEAKER) (test vepq=936) BILIRUBIN TOTAL (BEAKER) 0.6 mg/dL 0.2-1.2 (test nliw=456) SODIUM (BEAKER) (test 135 meq/L 136-145 fpwf=568) POTASSIUM (BEAKER) (test 3.9 meq/L 3.5-5.1 lpel=508) CHLORIDE (BEAKER) (test 113 meq/L 98-107 ovyz=813) CO2 (BEAKER) (test 16 meq/L 22-29 gnns=479) BLOOD UREA NITROGEN 19 mg/dL 7-21 (BEAKER) (test oolk=485) CREATININE (BEAKER) (test 1.07 mg/dL 0.57-1.25 qard=896) GLUCOSE RANDOM (BEAKER) 104 mg/dL 70-105 (test vjuz=594) CALCIUM (BEAKER) (test 8.6 mg/dL 8.4-10.2 rwyf=798) AST (SGOT) (BEAKER) (test 19 U/L 5-34 sgxe=216) ALT (SGPT) (BEAKER) (test 25 U/L 6-55 rukw=530) EGFR (BEAKER) (test 66 mL/min/1.73 sq m ESTIMATED GFR IS NOT lhtz=7989) ACCURATE CREATININE CLEARANCE IN PREDICTING GLOMERULAR FILTRATION RATE. ESTIMATED GFR IS NOT APPLICABLE FOR DIALYSIS PATIENTS. CBC W/PLT COUNT & AUTO [id number] 04:58:00 Test Item Value Reference Range Comments WHITE BLOOD CELL COUNT (BEAKER) (test bbsq=553) 8.8 K/ L 4.0-10.0 RED BLOOD CELL COUNT (BEAKER) (test kipk=442) 4.11 M/ L 4.20-5.80 HEMOGLOBIN (BEAKER) (test icrl=978) 13.4 GM/DL 13.0-16.8 HEMATOCRIT (BEAKER) (test dneb=142) 39.8 % 40.0-50.0 MEAN CORPUSCULAR VOLUME (BEAKER) (test tpcm=390) 97.0 fL 82.0-98.0 MEAN CORPUSCULAR HEMOGLOBIN (BEAKER) (test 32.8 pg 27.0-33.0 eehg=250) MEAN CORPUSCULAR HEMOGLOBIN CONC (BEAKER) (test 33.8 GM/DL 32.0-36.0 sxts=535) RED CELL DISTRIBUTION WIDTH (BEAKER) (test 14.5 % 10.3-14.2 tjbi=441) PLATELET COUNT (BEAKER) (test vbmo=246) 304 K/CU MM 150-430 MEAN PLATELET VOLUME (BEAKER) (test pohl=201) 6.9 fL 6.5-10.5 NUCLEATED RED BLOOD CELLS (BEAKER) (test 0 /100 WBC 0-0 qsjz=477) NEUTROPHILS RELATIVE PERCENT (BEAKER) (test 70 % dtqf=148) LYMPHOCYTES RELATIVE PERCENT (BEAKER) (test 17 % muhf=605) MONOCYTES RELATIVE PERCENT (BEAKER) (test 8 % svzf=279) EOSINOPHILS RELATIVE PERCENT (BEAKER) (test 4 % fnga=702) BASOPHILS RELATIVE PERCENT (BEAKER) (test 1 % umdl=232) NEUTROPHILS ABSOLUTE COUNT (BEAKER) (test 6.16 K/ L 1.80-8.00 nmii=186) LYMPHOCYTES ABSOLUTE COUNT (BEAKER) (test 1.48 K/ L 1.48-4.50 yjag=788) MONOCYTES ABSOLUTE COUNT (BEAKER) (test 0.72 K/ L 0.00-1.30 ehqf=145) EOSINOPHILS ABSOLUTE COUNT (BEAKER) (test 0.39 K/ L 0.00-0.50 rfvl=105) BASOPHILS ABSOLUTE COUNT (BEAKER) (test 0.05 K/ L 0.00-0.20 xqpn=661) 0.00COMPREHENSIVE METABOLIC [id number] 04:44:00 Test Item Value Reference Range Comments TOTAL PROTEIN (BEAKER) 6.5 gm/dL 6.0-8.3 (test uhpe=086) ALBUMIN (BEAKER) (test 3.5 g/dL 3.5-5.0 ztjy=4870) ALKALINE PHOSPHATASE 87 U/L 40-150 (BEAKER) (test cuwb=746) BILIRUBIN TOTAL (BEAKER) 0.6 mg/dL 0.2-1.2 (test qxmb=200) SODIUM (BEAKER) (test 135 meq/L 136-145 snqq=741) POTASSIUM (BEAKER) (test 4.3 meq/L 3.5-5.1 uvvx=602) CHLORIDE (BEAKER) (test 111 meq/L 98-107 rgvm=518) CO2 (BEAKER) (test 15 meq/L 22-29 rwle=846) BLOOD UREA NITROGEN 15 mg/dL 7-21 (BEAKER) (test qgcx=545) CREATININE (BEAKER) (test 1.04 mg/dL 0.57-1.25 uboo=920) GLUCOSE RANDOM (BEAKER) 109 mg/dL 70-105 (test pflv=029) CALCIUM (BEAKER) (test 9.0 mg/dL 8.4-10.2 slqd=036) AST (SGOT) (BEAKER) (test 15 U/L 5-34 jabu=634) ALT (SGPT) (BEAKER) (test 22 U/L 6-55 rpxw=609) EGFR (BEAKER) (test 68 mL/min/1.73 sq m ESTIMATED GFR IS NOT eenz=7311) ACCURATE CREATININE CLEARANCE IN PREDICTING GLOMERULAR FILTRATION RATE. ESTIMATED GFR IS NOT APPLICABLE FOR DIALYSIS PATIENTS. PROTHROMBIN TIME/[id number] 04:32:00 Test Item Value Reference Range Comments PROTIME (BEAKER) (test jxww=440) 25.9 seconds 11.7-14.7 INR (BEAKER) (test xmwl=912) 2.4 <=5.9 RECOMMENDED COUMADIN/WARFARIN INR THERAPY RANGESSTANDARD DOSE: 2.0 - 3.0 Includes: PROPHYLAXIS forvenous thrombosis, systemic embolization; TREATMENT for venous thrombosis and/or pulmonary embolus.HIGH RISK: Target INR is 2.5-3.5 for patients with mechanical heart valves.Please draw daily INR whileon warfarin. Thanks!CBC W/PLT COUNT & AUTO [id number] 04:29:00 Test Item Value Reference Range Comments WHITE BLOOD CELL COUNT (BEAKER) (test yprk=803) 10.1 K/ L 4.0-10.0 RED BLOOD CELL COUNT (BEAKER) (test pksq=464) 4.25 M/ L 4.20-5.80 HEMOGLOBIN (BEAKER) (test bozt=617) 14.0 GM/DL 13.0-16.8 HEMATOCRIT (BEAKER) (test irfz=131) 41.0 % 40.0-50.0 MEAN CORPUSCULAR VOLUME (BEAKER) (test dxff=057) 96.4 fL 82.0-98.0 MEAN CORPUSCULAR HEMOGLOBIN (BEAKER) (test 33.0 pg 27.0-33.0 cvdi=762) MEAN CORPUSCULAR HEMOGLOBIN CONC (BEAKER) (test 34.2 GM/DL 32.0-36.0 vxjx=383) RED CELL DISTRIBUTION WIDTH (BEAKER) (test 14.6 % 10.3-14.2 tbio=387) PLATELET COUNT (BEAKER) (test psle=571) 316 K/CU MM 150-430 MEAN PLATELET VOLUME (BEAKER) (test bzgd=248) 6.8 fL 6.5-10.5 NUCLEATED RED BLOOD CELLS (BEAKER) (test 0 /100 WBC 0-0 yhjy=962) NEUTROPHILS RELATIVE PERCENT (BEAKER) (test 72 % hrlg=181) LYMPHOCYTES RELATIVE PERCENT (BEAKER) (test 16 % tfma=339) MONOCYTES RELATIVE PERCENT (BEAKER) (test 8 % sqhw=075) EOSINOPHILS RELATIVE PERCENT (BEAKER) (test 4 % ngru=702) BASOPHILS RELATIVE PERCENT (BEAKER) (test 1 % jofc=394) NEUTROPHILS ABSOLUTE COUNT (BEAKER) (test 7.25 K/ L 1.80-8.00 mmlr=815) LYMPHOCYTES ABSOLUTE COUNT (BEAKER) (test 1.60 K/ L 1.48-4.50 znps=293) MONOCYTES ABSOLUTE COUNT (BEAKER) (test 0.82 K/ L 0.00-1.30 xrhs=860) EOSINOPHILS ABSOLUTE COUNT (BEAKER) (test 0.38 K/ L 0.00-0.50 lzen=442) BASOPHILS ABSOLUTE COUNT (BEAKER) (test 0.06 K/ L 0.00-0.20 bypy=940) 0.00PROTHROMBIN TIME/[id number] 05:07:00 Test Item Value Reference Range Comments PROTIME (BEAKER) (test vkey=670) 25.0 seconds 11.7-14.7 INR (BEAKER) (test fkui=444) 2.3 <=5.9 RECOMMENDED COUMADIN/WARFARIN INR THERAPY RANGESSTANDARD DOSE: 2.0 - 3.0 Includes: PROPHYLAXIS forvenous thrombosis, systemic embolization; TREATMENT for venous thrombosis and/or pulmonary embolus.HIGH RISK: Target INR is 2.5-3.5 for patients with mechanical heart valves.Please draw daily INR whileon warfarin. Thanks!PROTHROMBIN TIME/[id number] 06:50:00 Test Item Value Reference Range Comments PROTIME (BEAKER) (test uzip=734) 26.2 seconds 11.7-14.7 INR (BEAKER) (test lvvv=765) 2.4 <=5.9 RECOMMENDED COUMADIN/WARFARIN INR THERAPY RANGESSTANDARD DOSE: 2.0 - 3.0 Includes: PROPHYLAXIS forvenous thrombosis, systemic embolization; TREATMENT for venous thrombosis and/or pulmonary embolus.HIGH RISK: Target INR is 2.5-3.5 for patients with mechanical heart valves.Please draw daily INR whileon warfarin. Thanks!HIV-1 ANTIGEN WITH HIV-1/2 [id number] 06:50:00 Test Item Value Reference Range Comments HIV-1 ANTIGEN WITH HIV 1\\T\\2 ANTIBODY (2) Nonreactive Nonreactive (BEAKER) (test ynzf=1055) FOLATE, [id number] 06:11:00 Test Item Value Reference Range Comments FOLATE (BEAKER) (test wzus=221) 8.0 ng/mL >=7.0 Effective 05/30/2014: Folate Reference Range ChangeNew: >=7.0 Previous: & gt;=5.4PROTHROMBIN TIME/[id number] 05:51:00 Test Item Value Reference Range Comments PROTIME (BEAKER) (test itfy=897) 23.9 seconds 11.7-14.7 INR (BEAKER) (test krvx=052) 2.1 <=5.9 RECOMMENDED COUMADIN/WARFARIN INR THERAPY RANGESSTANDARD DOSE: 2.0 - 3.0 Includes: PROPHYLAXIS forvenous thrombosis, systemic embolization; TREATMENT for venous thrombosis and/or pulmonary embolus.HIGH RISK: Target INR is 2.5-3.5 for patients with mechanical heart valves.Please draw daily INR whileon warfarin. Thanks!STOOL CULTURE + SHIGA [id number] 11:25:00 Test Item Value Reference Range Comments CULTURE (BEAKER) (test No Salmonella, Shigella or bnyo=6808) Campylobacter isolated [id number] 06:19:00 Test Item Value Reference Range Comments HOMOCYSTEINE (BEAKER) (test qkww=311) 9.1 umol/L 5.1-15.4 PROTHROMBIN TIME/[id number] 06:00:00 Test Item Value Reference Range Comments PROTIME (BEAKER) (test xdbz=004) 23.8 seconds 11.7-14.7 INR (BEAKER) (test xndd=099) 2.1 <=5.9 RECOMMENDED COUMADIN/WARFARIN INR THERAPY RANGESSTANDARD DOSE: 2.0 - 3.0 Includes: PROPHYLAXIS forvenous thrombosis, systemic embolization; TREATMENT for venous thrombosis and/or pulmonary embolus.HIGH RISK: Target INR is 2.5-3.5 for patients with mechanical heart valves.Please draw daily INR whileon warfarin. Thanks!IMMUNOGLOBULIN M (IGM)2016-12-26 05:58:00 Test Item Value Reference Range Comments IMMUNOGLOBULIN M (IGM) (BEAKER) (test cqcb=515) 40 mg/dL 22-293 IMMUNOGLOBULIN A (IGA)2016-12-26 05:58:00 Test Item Value Reference Range Comments IMMUNOGLOBULIN A (IGA) (BEAKER) (test ezfp=634) 179 mg/dL 63-484 SHIGA TOXIN [id number] 19:16:00 Test Item Value Reference Range Comments SHIGA TOXIN 1 (BEAKER) (test kgzr=1169) Not detected Not detected SHIGA TOXIN 2 (BEAKER) (test ltwr=7937) Not detected Not detected STOOL PATH [id number] 17:36:00 Test Item Value Reference Range Comments PATHOGEN EXAM CHARGED (BEAKER) (test absx=1911) Done PROTHROMBIN TIME/[id number] 13:40:00 Test Item Value Reference Range Comments PROTIME (BEAKER) (test amcr=800) 23.0 seconds 11.7-14.7 INR (BEAKER) (test szba=377) 2.0 <=5.9 RECOMMENDED COUMADIN/WARFARIN INR THERAPY RANGESSTANDARD DOSE: 2.0 - 3.0 Includes: PROPHYLAXIS forvenous thrombosis, systemic embolization; TREATMENT for venous thrombosis and/or pulmonary embolus.HIGH RISK: Target INR is 2.5-3.5 for patients with mechanical heart valves.Please draw daily INR whileon warfarin. Thanks!IMMUNOGLOBULIN G (IGG)2016-12-25 06:22:00 Test Item Value Reference Range Comments IMMUNOGLOBULIN G (IGG) (BEAKER) (test fzed=715) 699 mg/dL 540-1822 FECAL [id number] 01:26:00 Test Item Value Reference Range Comments FECAL LEUKOCYTES (BEAKER) No fecal leukocytes seen No fecal leukocytes seen (test dphq=331) HEPATIC FUNCTION [id number] 14:50:00 Test Item Value Reference Range Comments TOTAL PROTEIN (BEAKER) (test gkrw=802) 6.0 gm/dL 6.0-8.3 ALBUMIN (BEAKER) (test lgvj=5484) 3.2 g/dL 3.5-5.0 BILIRUBIN TOTAL (BEAKER) (test dpbz=092) 0.5 mg/dL 0.2-1.2 BILIRUBIN DIRECT (BEAKER) (test ewey=056) 0.2 mg/dL 0.1-0.5 ALKALINE PHOSPHATASE (BEAKER) (test kfkn=945) 74 U/L 40-150 AST (SGOT) (BEAKER) (test jssg=133) 17 U/L 5-34 ALT (SGPT) (BEAKER) (test nipq=529) 21 U/L 6-55 C-REACTIVE [id number] 14:50:00 Test Item Value Reference Range Comments C-REACTIVE PROTEIN (BEAKER) (test fxsv=877) 1.30 mg/dL 0.00-0.50 [id number] 14:45:00 Test Item Value Reference Range Comments PREALBUMIN (BEAKER) (test 19 mg/dL 14-45 Specimen slightly hemolyzed wzbr=299) [id number] 05:36:00 Test Item Value Reference Range Comments MAGNESIUM (BEAKER) (test jury=738) 1.8 mg/dL 1.6-2.6 BASIC METABOLIC [id number] 05:36:00 Test Item Value Reference Range Comments SODIUM (BEAKER) (test 137 meq/L 136-145 aorl=522) POTASSIUM (BEAKER) (test 3.6 meq/L 3.5-5.1 juoy=112) CHLORIDE (BEAKER) (test 109 meq/L 98-107 vwko=307) CO2 (BEAKER) (test 20 meq/L 22-29 ipmh=871) BLOOD UREA NITROGEN 13 mg/dL 7-21 (BEAKER) (test hlrc=423) CREATININE (BEAKER) (test 0.83 mg/dL 0.57-1.25 ctqs=641) GLUCOSE RANDOM (BEAKER) 103 mg/dL 70-105 (test ihzu=765) CALCIUM (BEAKER) (test 8.3 mg/dL 8.4-10.2 otme=527) EGFR (BEAKER) (test 88 mL/min/1.73 sq m ESTIMATED GFR IS NOT cbyk=5036) ACCURATE CREATININE CLEARANCE IN PREDICTING GLOMERULAR FILTRATION RATE. ESTIMATED GFR IS NOT APPLICABLE FOR DIALYSIS PATIENTS. PROTHROMBIN TIME/[id number] 05:33:00 Test Item Value Reference Range Comments PROTIME (BEAKER) (test xhby=019) 27.9 seconds 11.7-14.7 INR (BEAKER) (test sfml=081) 2.6 <=5.9 RECOMMENDED COUMADIN/WARFARIN INR THERAPY RANGESSTANDARD DOSE: 2.0 - 3.0 Includes: PROPHYLAXIS forvenous thrombosis, systemic embolization; TREATMENT for venous thrombosis and/or pulmonary embolus.HIGH RISK: Target INR is 2.5-3.5 for patients with mechanical heart valves.CBC (HEMOGRAM ONLY)2016-12-24 05:21:00 Test Item Value Reference Range Comments WHITE BLOOD CELL COUNT (BEAKER) (test dphh=279) 8.8 K/ L 4.0-10.0 RED BLOOD CELL COUNT (BEAKER) (test zadt=319) 3.85 M/ L 4.20-5.80 HEMOGLOBIN (BEAKER) (test oxqs=034) 12.2 GM/DL 13.0-16.8 HEMATOCRIT (BEAKER) (test wrmm=474) 37.3 % 40.0-50.0 MEAN CORPUSCULAR VOLUME (BEAKER) (test xlte=688) 96.9 fL 82.0-98.0 MEAN CORPUSCULAR HEMOGLOBIN (BEAKER) (test 31.6 pg 27.0-33.0 lxbn=112) MEAN CORPUSCULAR HEMOGLOBIN CONC (BEAKER) (test 32.6 GM/DL 32.0-36.0 nitx=392) RED CELL DISTRIBUTION WIDTH (BEAKER) (test 14.6 % 10.3-14.2 wtqs=288) PLATELET COUNT (BEAKER) (test ojlf=066) 247 K/CU MM 150-430 MEAN PLATELET VOLUME (BEAKER) (test hauh=453) 7.0 fL 6.5-10.5 NUCLEATED RED BLOOD CELLS (BEAKER) (test 0 /100 WBC 0-0 vmek=296) 0.00VITAMIN D, 97-[id number] 19:10:00 Test Item Value Reference Range Comments VITAMIN D 25-OH (BEAKER) (test llvd=0929) < ng/mL 13.0-47.8 POCT-GLUCOSE [id number] 08:14:00 Test Item Value Reference Range Comments POC-GLUCOSE METER (BEAKER) 225 mg/dL 70-110 TESTED AT [facility] [address] [facility] (test jmps=3315) [facility] [address] [id number] 05:51:00 Test Item Value Reference Range Comments MAGNESIUM (BEAKER) (test vjwo=400) 2.0 mg/dL 1.6-2.6 BASIC METABOLIC [id number] 05:51:00 Test Item Value Reference Range Comments SODIUM (BEAKER) (test 137 meq/L 136-145 uduv=752) POTASSIUM (BEAKER) (test 3.7 meq/L 3.5-5.1 nddk=098) CHLORIDE (BEAKER) (test 107 meq/L 98-107 virw=407) CO2 (BEAKER) (test 20 meq/L 22-29 nwve=650) BLOOD UREA NITROGEN 19 mg/dL 7-21 (BEAKER) (test wjej=784) CREATININE (BEAKER) (test 0.96 mg/dL 0.57-1.25 zmbw=012) GLUCOSE RANDOM (BEAKER) 106 mg/dL 70-105 (test zlny=608) CALCIUM (BEAKER) (test 8.7 mg/dL 8.4-10.2 olav=737) EGFR (BEAKER) (test 75 mL/min/1.73 sq m ESTIMATED GFR IS NOT zvwq=6081) ACCURATE CREATININE CLEARANCE IN PREDICTING GLOMERULAR FILTRATION RATE. ESTIMATED GFR IS NOT APPLICABLE FOR DIALYSIS PATIENTS. PROTHROMBIN [id number] 05:38:00 Test Item Value Reference Range Comments PROTIME (BEAKER) (test kvll=396) 21.9 seconds 11.7-14.7 INR (BEAKER) (test gnbm=202) 1.9 <=5.9 RECOMMENDED COUMADIN/WARFARIN INR THERAPY RANGESSTANDARD DOSE: 2.0 - 3.0 Includes: PROPHYLAXIS forvenous thrombosis, systemic embolization; TREATMENT for venous thrombosis and/or pulmonary embolus.HIGH RISK: Target INR is 2.5-3.5 for patients with mechanical heart valves.CBC (HEMOGRAM ONLY)2016-12-23 05:37:00 Test Item Value Reference Range Comments WHITE BLOOD CELL COUNT (BEAKER) (test lgqj=781) 9.4 K/ L 4.0-10.0 RED BLOOD CELL COUNT (BEAKER) (test wngy=886) 4.14 M/ L 4.20-5.80 HEMOGLOBIN (BEAKER) (test wdts=920) 13.5 GM/DL 13.0-16.8 HEMATOCRIT (BEAKER) (test rbtc=334) 40.4 % 40.0-50.0 MEAN CORPUSCULAR VOLUME (BEAKER) (test oxmu=368) 97.6 fL 82.0-98.0 MEAN CORPUSCULAR HEMOGLOBIN (BEAKER) (test 32.6 pg 27.0-33.0 havv=402) MEAN CORPUSCULAR HEMOGLOBIN CONC (BEAKER) (test 33.4 GM/DL 32.0-36.0 vvjy=598) RED CELL DISTRIBUTION WIDTH (BEAKER) (test 14.8 % 10.3-14.2 abih=599) PLATELET COUNT (BEAKER) (test ymup=315) 243 K/CU MM 150-430 MEAN PLATELET VOLUME (BEAKER) (test nkav=318) 7.4 fL 6.5-10.5 NUCLEATED RED BLOOD CELLS (BEAKER) (test 0 /100 WBC 0-0 jkzz=679) [id number] 11:58:00 Test Item Value Reference Range Comments RPR SCREEN (BEAKER) (test buyl=606) Nonreactive Nonreactive CLOSTRIDIUM DIFFICILE TOXIN [id number] 11:24:00 Test Item Value Reference Range Comments CLOSTRIDIUM DIFFICILE TOXIN, PCR (BEAKER) (test Not Detected Not Detected ipux=4550) This qualitative real-time polymerase chain reaction assay [...] of a positive result is not recommended.HEMOGLOBIN [id number] 08:09:00 Test Item Value Reference Range Comments HEMOGLOBIN A1C (BEAKER) (test qglx=177) 6.5 % 4.3-6.1 TSH/FREE T4 IF [id number] 07:26:00 Test Item Value Reference Range Comments THYROID STIMULATING HORMONE (BEAKER) (test 1.35 uIU/mL 0.35-4.94 ewkc=320) [id number] 07:13:00 Test Item Value Reference Range Comments MAGNESIUM (BEAKER) (test dxyt=603) 2.0 mg/dL 1.6-2.6 BASIC METABOLIC [id number] 07:13:00 Test Item Value Reference Range Comments SODIUM (BEAKER) (test 137 meq/L 136-145 diok=039) POTASSIUM (BEAKER) (test 3.6 meq/L 3.5-5.1 bnff=221) CHLORIDE (BEAKER) (test 107 meq/L 98-107 nkfp=330) CO2 (BEAKER) (test 20 meq/L 22-29 gpnv=143) BLOOD UREA NITROGEN 18 mg/dL 7-21 (BEAKER) (test ufva=083) CREATININE (BEAKER) (test 0.92 mg/dL 0.57-1.25 zgys=616) GLUCOSE RANDOM (BEAKER) 97 mg/dL 70-105 (test qodj=853) CALCIUM (BEAKER) (test 8.5 mg/dL 8.4-10.2 wfxw=798) EGFR (BEAKER) (test 79 mL/min/1.73 sq m ESTIMATED GFR IS NOT rukv=2677) ACCURATE CREATININE CLEARANCE IN PREDICTING GLOMERULAR FILTRATION RATE. ESTIMATED GFR IS NOT APPLICABLE FOR DIALYSIS PATIENTS. LIPID [id number] 07:13:00 Test Item Value Reference Range Comments TRIGLYCERIDES (BEAKER) (test pbut=111) 141 mg/dL CHOLESTEROL (BEAKER) (test tuvf=889) 160 mg/dL HDL CHOLESTEROL (BEAKER) (test eltb=930) 34 mg/dL LDL CHOLESTEROL CALCULATED (BEAKER) (test 98 mg/dL dtup=336) Triglyceride Reference Range: Low Risk <150 Borderline [...] Comments WHITE BLOOD CELL COUNT (BEAKER) (test oxpt=006) 7.6 K/ L 4.0-10.0 RED BLOOD CELL COUNT (BEAKER) (test zbgv=022) 3.98 M/ L 4.20-5.80 HEMOGLOBIN (BEAKER) (test ynzm=912) 13.2 GM/DL 13.0-16.8 HEMATOCRIT (BEAKER) (test hcyc=745) 38.8 % 40.0-50.0 MEAN CORPUSCULAR VOLUME (BEAKER) (test gudw=375) 97.7 fL 82.0-98.0 MEAN CORPUSCULAR HEMOGLOBIN (BEAKER) (test 33.1 pg 27.0-33.0 brch=330) MEAN CORPUSCULAR HEMOGLOBIN CONC (BEAKER) (test 33.9 GM/DL 32.0-36.0 csmo=747) RED CELL DISTRIBUTION WIDTH (BEAKER) (test 14.7 % 10.3-14.2 gydx=489) PLATELET COUNT (BEAKER) (test lwlo=103) 222 K/CU MM 150-430 MEAN PLATELET VOLUME (BEAKER) (test zywg=073) 7.2 fL 6.5-10.5 NUCLEATED RED BLOOD CELLS (BEAKER) (test 0 /100 WBC 0-0 dcos=857) 0.00PROTHROMBIN [id number] 07:04:00 Test Item Value Reference Range Comments PROTIME (BEAKER) (test swzr=162) 22.9 seconds 11.7-14.7 INR (BEAKER) (test bjby=685) 2.0 <=5.9 RECOMMENDED COUMADIN/WARFARIN INR THERAPY RANGESSTANDARD DOSE: 2.0 - 3.0 Includes: PROPHYLAXIS forvenous thrombosis, systemic embolization; TREATMENT for venous thrombosis and/or pulmonary embolus.HIGH RISK: Target INR is 2.5-3.5 for patients with mechanical heart valves.PROTHROMBIN [id number] 07:03: 00 Test Item Value Reference Range Comments PROTIME (BEAKER) (test uttc=633) 22.6 seconds 11.7-14.7 INR (BEAKER) (test bnxi=482) 2.0 <=5.9 RECOMMENDED COUMADIN/WARFARIN INR THERAPY RANGESSTANDARD DOSE: 2.0 - 3.0 Includes: PROPHYLAXIS forvenous thrombosis, systemic embolization; TREATMENT for venous thrombosis and/or pulmonary embolus.HIGH RISK: Target INR is 2.5-3.5 for patients with mechanical heart valves.VITAMIN [id number] 23:18:00 Test Item Value Reference Range Comments VITAMIN B12 (BEAKER) (test mzge=919) 210 pg/mL 213-816 SEDIMENTATION [id number] 23:06:00 Test Item Value Reference Range Comments SEDIMENTATION RATE, ERYTHROCYTE (BEAKER) (test 29 mm/HR 0-40 qapl=422) B-TYPE NATRIURETIC FACTOR (BNP)2016-12-21 18:19:00 Test Item Value Reference Range Comments B-TYPE NATRIURETIC PEPTIDE (BEAKER) (test 124 pg/mL 0-100 zxps=069) BASIC METABOLIC [id number] 18:11:00 Test Item Value Reference Range Comments SODIUM (BEAKER) (test 136 meq/L 136-145 nvef=642) POTASSIUM (BEAKER) (test 4.2 meq/L 3.5-5.1 Specimen slightly ziay=034) hemolyzed CHLORIDE (BEAKER) (test 107 meq/L 98-107 kjmk=041) CO2 (BEAKER) (test 19 meq/L 22-29 msvd=502) BLOOD UREA NITROGEN 22 mg/dL 7-21 (BEAKER) (test clyg=346) CREATININE (BEAKER) 1.20 mg/dL 0.57-1.25 Specimen slightly (test ixng=703) hemolyzed GLUCOSE RANDOM (BEAKER) 180 mg/dL 70-105 (test uuvg=282) CALCIUM (BEAKER) (test 8.8 mg/dL 8.4-10.2 zqfs=094) EGFR (BEAKER) (test 58 mL/min/1.73 sq m INSUFFICIENT CLINICAL DATA ywvx=3722) TO CALCULATE ESTIMATED GFR. CREATINE KINASE (CK), TOTAL AND [id number] 18:11:00 Test Item Value Reference Range Comments CREATINE KINASE TOTAL (BEAKER) (test qcyl=805) 36 U/L 29-200 CREATINE KINASE-MB (BEAKER) (test nboy=618) 0.5 ng/mL 0.0-6.6 CREATINE KINASE-MB INDEX (BEAKER) (test elhv=192) 1.4 % Effective 05/30/2014: CK-MB Reference Range ChangeNew: 0.0-6.6 Previous: 0.0- 4.9CK-MB Reference Range:<6.7 Normal6.7-10.0 Borderline>10.0 [id number] 18:11:00 Test Item Value Reference Range Comments MAGNESIUM (BEAKER) (test 2.0 mg/dL 1.6-2.6 Specimen slightly hemolyzed hmwt=048) TROPONIN [id number] 18:11:00 Test Item Value Reference Range Comments TROPONIN I (BEAKER) (test vfdw=870) 0.01 ng/mL 0.00-0.03 Effective 05/30/2014: Reference Range [...] renalfailure, acidosis, acute neurological disease, and persistent tachyarrhythmia.PT/[id number] 17:11:00 Test Item Value Reference Range Comments PROTIME (BEAKER) (test hfss=232) 25.6 seconds 11.7-14.7 INR (BEAKER) (test ipey=525) 2.3 <=5.9 PARTIAL THROMBOPLASTIN TIME (BEAKER) (test 36.5 seconds 22.5-36.0 cvgf=632) RECOMMENDED COUMADIN/WARFARIN INR THERAPY RANGESSTANDARD DOSE: 2.0 - 3.0 Includes: PROPHYLAXIS forvenous thrombosis, systemic embolization; TREATMENT for venous thrombosis and/or pulmonary embolus.HIGH RISK: Target INR is 2.5-3.5 for patients with mechanical heart valves.CBC W/PLT COUNT & AUTO [id number] 17:04:00 Test Item Value Reference Range Comments WHITE BLOOD CELL COUNT (BEAKER) (test nexy=835) 11.9 K/ L 4.0-10.0 RED BLOOD CELL COUNT (BEAKER) (test nwhp=697) 4.40 M/ L 4.20-5.80 HEMOGLOBIN (BEAKER) (test vwha=516) 14.1 GM/DL 13.0-16.8 HEMATOCRIT (BEAKER) (test ezct=353) 42.8 % 40.0-50.0 MEAN CORPUSCULAR VOLUME (BEAKER) (test vvvg=552) 97.1 fL 82.0-98.0 MEAN CORPUSCULAR HEMOGLOBIN (BEAKER) (test 32.0 pg 27.0-33.0 uhwk=522) MEAN CORPUSCULAR HEMOGLOBIN CONC (BEAKER) (test 33.0 GM/DL 32.0-36.0 cjxd=321) RED CELL DISTRIBUTION WIDTH (BEAKER) (test 14.7 % 10.3-14.2 zuar=440) PLATELET COUNT (BEAKER) (test tqsx=181) 246 K/CU MM 150-430 MEAN PLATELET VOLUME (BEAKER) (test txqb=050) 7.2 fL 6.5-10.5 NEUTROPHILS RELATIVE PERCENT (BEAKER) (test 93 % jrkr=426) LYMPHOCYTES RELATIVE PERCENT (BEAKER) (test 2 % kjeu=971) MONOCYTES RELATIVE PERCENT (BEAKER) (test 3 % rmtz=814) EOSINOPHILS RELATIVE PERCENT (BEAKER) (test 1 % jnhz=333) BASOPHILS RELATIVE PERCENT (BEAKER) (test 1 % issg=560) NEUTROPHILS ABSOLUTE COUNT (BEAKER) (test K/ L 1.80-8.00 lyul=963) LYMPHOCYTES ABSOLUTE COUNT (BEAKER) (test K/ L 1.48-4.50 eaxs=345) MONOCYTES ABSOLUTE COUNT (BEAKER) (test K/ L 0.00-1.30 cdoe=142) EOSINOPHILS ABSOLUTE COUNT (BEAKER) (test K/ L 0.00-0.50 yqnj=264) BASOPHILS ABSOLUTE COUNT (BEAKER) (test K/ L 0.00-0.20 klcw=061)
[2018-06-19 23:38] LABS: Absolute Lymphocytes (CBC) 1.7 K/uL (0.7-4.9); Absolute Monocytes 0.8 K/uL (0.1-1.3); Absolute Neutrophil 5.6 K/uL (1.8-8.0); Basophils % 0.9 % (0-1.3); Eosinophils % 3.7 % (0-4.4); Hematocrit 38.6 % (39.6-49.0); Lymphocytes % 20.2 % (15.3-44.8); MCH 33.9 pg (27.0-35.0); MCV 97.6 fL (80-100); MPV 8.8 fL (7.6-11.3); Monocytes % 9.1 % (3.3-12.3); RBC Red Blood Cell Count 3.96 M/uL (4.33-5.43)
[2018-06-19 23:45] LABS: Potassium 4.1 mmol/L (3.5-5.1)
--- NOTE | 2018-06-20 04:44 | EDPHYS ---
Physician Documentation [facility] Name: Luis Schumacher Age: 83 yrs Sex: Male : 1935 Arrival Date: 06/19/2018 Time: 22:44 Bed 23 Private MD: ED Physician Alec Valentine HPI: 06/19 22:47 This 83 yrs old Male presents to ER via Unassigned with complaints of right ps1 ear bleeding, s/p fall, confusion. 22:47 patient fell going out the door. Incomplete historian. ? Blood thinners. Occurred 2 ps1 days ago. Not been acting right since per . Slow to respond. No FND. Hemotympanum on right. Vomited after event. Unknown LOC. Historical: - Allergies: 22:57 PENICILLINS; tl2 - Home Meds: 22:57 warfarin 5 mg Oral tab 1 tab once daily [Active]; Vitamin D3 1,000 unit Oral tab daily tl2 [Active]; Vitamin B-12 100 mcg Oral tab daily [Active]; simvastatin 40 mg Oral tab 1 tab once daily [Active]; omeprazole 40 mg Oral cpDR 1 cap once daily [Active]; metoprolol tartrate 25 mg Oral tab 1 tab once daily [Active]; levothyroxine 50 mcg tab 1 tab once daily [Active]; irbesartan 300 mg Oral tab 1 tab once daily [Active]; aspirin 81 mg Oral chew 1 tab once daily [Active]; amlodipine 10 mg tab 1 tab once daily [Active]; - PMHx: 22:57 Carotid artery blockage; CVA; DVT; Hypertension; Pacemaker; Parkinsons; 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 - Social history:: Smoking status: Patient/guardian denies using tobacco. - Ebola Screening: : No symptoms or risks identified at this time. ROS: 22:47 Unable to obtain ROS due to confusion and unable to answer all questions appropriately. ps1 Exam: 22:47 Constitutional: This is a well developed, well nourished patient who is awake, alert, ps1 and in no acute distress. Head/Face: Normocephalic, atraumatic. Eyes: Pupils equal round and reactive to light, extra-ocular motions intact. Lids and lashes normal. Conjunctiva and sclera are non-icteric and not injected. 22:47 Chest/axilla: Normal chest wall appearance and motion. Nontender with no deformity. No lesions are appreciated. Cardiovascular: Regular rate and rhythm. No gallops, murmurs, or rubs. Normal PMI, no JVD. No pulse deficits. 22:47 Abdomen/GI: Soft, non-tender, with normal bowel sounds. No distension or tympany. No guarding or rebound. No evidence of tenderness throughout. Skin: Warm, dry with normal turgor. Normal color with no rashes, no lesions, and no evidence of cellulitis. MS/ Extremity: Pulses equal, no cyanosis. Neurovascular intact. Full, normal range of motion. 22:47 ENT: External ear(s): Dried Blood. Ear canal(s): bloody discharge, that is moderate, in the right canal. 22:47 Chest/axilla: Inspection: normal, Palpation: tenderness, that is moderate, of the left lateral anterior chest and left breast. 22:47 Neuro: Orientation: to person, place, situation, Mentation: slow to respond, confused, Memory: immediate memory is intact, remote memory is impaired, Cerebellar function: is grossly normal. Vital Signs: 22:57 BP 139 / 87; Pulse 69; Resp 18; Temp 98.9(O); Pulse Ox 98% on R/A; Weight 90.72 kg; tl2 Height 6 ft. 1 in. (185.42 cm); Pain 08/22; 06/20 00:04 BP 126 / 64; Pulse 70; Resp 18; Pulse Ox 97% on R/A; tl2 01:05 BP 116 / 64; Pulse 70; Resp 15; Pulse Ox 95% on R/A; tl2 02:21 BP 130 / 79; Pulse 70; Resp 18; Pulse Ox 96% on R/A; tl2 04:08 BP 140 / 76; Pulse 70; Resp 20; Pulse Ox 97% on R/A; tl2 04:54 BP 127 / 61; Pulse 70; Resp 22; Pulse Ox 98% on R/A; tl2 06/19 22:57 Body Mass Index 26.39 (90.72 kg, 185.42 cm) tl2 MDM: 06/19 22:52 Patient medically screened. ps1 06/20 04:41 Data reviewed: vital signs, nurses notes, lab test result(s), radiologic studies, ps1 patient at baseline and confirmed with family member. Answering questions appropriately. , and as a result, I will discharge patient. 06/19 22:47 Order name: Basic Metabolic Panel; Complete Time: 23:46 ps1 06/19 22:47 Order name: CBC with Diff; Complete Time: 23:46 ps1 06/19 22:47 Order name: Creatinine for Radiology; Complete Time: 23:46 ps1 06/19 22:47 Order name: Type And Screen; Complete Time: 01:12 ps1 06/20 00:19 Order name: Urine Dipstick--Ancillary (enter results) ar5 06/20 01:52 Order name: Troponin (emerg Dept Use Only) ps1 06/19 22:47 Order name: CT Traumagram (Head C Spine CAP W Con) ps1 06/19 22:47 Order name: Labs collected and sent; Complete Time: 23:01 ps1 06/19 22:47 Order name: Urine Dipstick-Ancillary (obtain specimen); Complete Time: 00:06 ps1 06/20 01:52 Order name: EKG - Nurse/Tech; Complete Time: 02:20 ps1 Administered Medications: No medications were administered Disposition: 04:44 Chart complete. ps1 Disposition: 06/20/18 04:43 Discharged to Home. Impression: Fall from standing height, Laceration to right ear, transient confusion. - Condition is Stable. - Discharge Instructions: Fall Prevention in the Home. - Medication Reconciliation Form, Thank You Letter, Antibiotic Education, Prescription Opioid Use form. - Follow up: Private Physician; When: As needed; Reason: Recheck today's complaints, Continuance of care, Re-evaluation by your physician. Follow up: Emergency Department; When: As needed; Reason: Worsening of condition. - Problem is new. - Symptoms have improved. Signatures: Dispatcher [employer] EDMS Adela Howard RN RN tl2 Alec Valentine MD MD ps1 Corrections: (The following items were deleted from the chart) 04:55 04:43 06/20/2018 04:43 Discharged to Home. Impression: Fall from standing height; tl2 Laceration to right ear; transient confusion. Condition is Stable. Forms are Medication Reconciliation Form, Thank You Letter, Antibiotic Education, Prescription Opioid Use. Follow up: Private Physician; When: As needed; Reason: Recheck today's complaints, Continuance of care, Re-evaluation by your physician. Follow up: Emergency Department; When: As needed; Reason: Worsening of condition. Problem is new. Symptoms have improved. ps1
--- NOTE | 2018-06-20 04:44 | ER ---
Nurse's Notes [facility] Name: Luis Schumacher Age: 83 yrs Sex: Male : 1935 Arrival Date: 06/19/2018 Time: 22:44 Bed 23 Private MD: Diagnosis: Fall from standing height;Laceration to right ear;transient confusion Presentation: 06/19 22:52 Presenting complaint: EMS states: Pt fell on and had one episode of vomiting. tl2 Was not seen by a PCP. states that pt has been acting "off" since then and appears to answer questions slower than normal. called EMS because she noticed pt was bleeding from right ear. Transition of care: patient was not received from another setting of care. Onset of symptoms was June 17, 2018. Risk Assessment: Do you want to hurt yourself or someone else? Patient reports no desire to harm self or others. Initial Sepsis Screen: Does the patient meet any 2 criteria? No. Patient's initial sepsis screen is negative. Does the patient have a suspected source of infection? No. Patient's initial sepsis screen is negative. Care prior to arrival: None. 22:52 Method Of Arrival: EMS: [facility] tl2 22:52 Acuity: MARSHA 3 tl2 Triage Assessment: 22:57 General: Appears in no apparent distress. uncomfortable, Behavior is restless. Pain: tl2 Complains of pain in left breast Pain does not radiate. EENT: Ear canal w/ bleeding noted from right ear. Neuro: Level of Consciousness is awake, alert, obeys commands, Oriented to person, place, situation, slow to respond. Cardiovascular: Denies chest pain. Respiratory: Reports cough that is Airway is patent Respiratory effort is even, unlabored, Respiratory pattern is regular, symmetrical. GI: No signs and/or symptoms were reported involving the gastrointestinal system. : No signs and/or symptoms were reported regarding the genitourinary system. Derm: Skin is pink, warm \\T\\ dry. Historical: - Allergies: 22:57 PENICILLINS; tl2 - Home Meds: 22:57 warfarin 5 mg Oral tab 1 tab once daily [Active]; Vitamin D3 1,000 unit Oral tab daily tl2 [Active]; Vitamin B-12 100 mcg Oral tab daily [Active]; simvastatin 40 mg Oral tab 1 tab once daily [Active]; omeprazole 40 mg Oral cpDR 1 cap once daily [Active]; metoprolol tartrate 25 mg Oral tab 1 tab once daily [Active]; levothyroxine 50 mcg tab 1 tab once daily [Active]; irbesartan 300 mg Oral tab 1 tab once daily [Active]; aspirin 81 mg Oral chew 1 tab once daily [Active]; amlodipine 10 mg tab 1 tab once daily [Active]; - PMHx: 22:57 Carotid artery blockage; CVA; DVT; Hypertension; Pacemaker; Parkinsons; 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 - Social history:: Smoking status: Patient/guardian denies using tobacco. - Ebola Screening: : No symptoms or risks identified at this time. Screenin:59 Abuse screen: Denies threats or abuse. Nutritional screening: No deficits noted. tl2 Tuberculosis screening: No symptoms or risk factors identified. Fall Risk Fall in past 12 months (25 points). IV access (20 points). Assessment: 23:00 General: see triage assessment. tl2 06/20 00:04 Reassessment: Patient appears in no apparent distress at this time. Patient and/or tl2 family updated on plan of care and expected duration. Pain level reassessed. Patient is alert, oriented x 3, equal unlabored respirations, skin warm/dry/pink. awaiting results. 01:05 Reassessment: Patient appears in no apparent distress at this time. Patient and/or tl2 family updated on plan of care and expected duration. Pain level reassessed. Patient is alert, oriented x 3, equal unlabored respirations, skin warm/dry/pink. 04:08 Reassessment: irrigated ear canal, small source of bleeding possibly on tympanic tl2 membrane. Bleeding is slow. MD notified. 04:35 Reassessment: MD at bedside to speak with pt and family, Pt is answering questions tl2 appropriately, bleeding in ear has stopped. states that she prefers to take pt home. Vital Signs: 12 22:57 BP 139 / 87; Pulse 69; Resp 18; Temp 98.9(O); Pulse Ox 98% on R/A; Weight 90.72 kg; tl2 Height 6 ft. 1 in. (185.42 cm); Pain 2/10; 06/20 00:04 BP 126 / 64; Pulse 70; Resp 18; Pulse Ox 97% on R/A; tl2 01:05 BP 116 / 64; Pulse 70; Resp 15; Pulse Ox 95% on R/A; tl2 02:21 BP 130 / 79; Pulse 70; Resp 18; Pulse Ox 96% on R/A; tl2 04:08 BP 140 / 76; Pulse 70; Resp 20; Pulse Ox 97% on R/A; tl2 04:54 BP 127 / 61; Pulse 70; Resp 22; Pulse Ox 98% on R/A; tl2 12 22:57 Body Mass Index 26.39 (90.72 kg, 185.42 cm) tl2 Vitals: 06/19 23:00 Cardiac Rhythm Assessment Paced. tl2 ED Course: 22:44 Patient arrived in ED. mr 22:45 Alec Valentine MD is Attending Physician. ps1 22:50 Missed attempt(s): 22 gauge in right antecubital area. Bleeding controlled, band aid aa1 applied, catheter tip intact. 22:52 Adela Howard, RN is Primary Nurse. tl2 22:53 Triage completed. tl2 22:57 Arm band placed on right wrist. tl2 22:59 Patient has correct armband on for positive identification. Placed in gown. Bed in low tl2 position. Call light in reach. Side rails up X2. Adult w/ patient. 22:59 Inserted saline lock: 20 gauge in right wrist, using aseptic technique. placed by tl2 YOGESH Dominguez. 23:[address] via stretcher. kw1 23:46 CT completed. Patient tolerated procedure well. Patient moved back from CT. kw1 23:48 CT Traumagram (Head C Spine CAP W Con) In Process Unspecified. EDMS 06/20 00:05 Straight cath inserted, using sterile technique, 16 Fr. Specimen obtained. Returned tl2 clear yellow urine. Patient tolerated well. 02:55 EKG done, by ED staff, reviewed by Alec Valentine MD. ds4 04:54 No provider procedures requiring assistance completed. IV discontinued, intact, tl2 bleeding controlled, No redness/swelling at site. Pressure dressing applied. Administered Medications: No medications were administered Outcome: 04:43 Discharge ordered by MD. ps1 04:54 Discharged to home via wheelchair, with family. tl2 04:54 Condition: stable 04:54 Discharge instructions given to patient, family, Instructed on discharge instructions, follow up and referral plans. Demonstrated understanding of instructions, follow-up care. 04:55 Patient left the ED. tl2 Signatures: Dispatcher [employer] EDMS Angelica Williamson RN RN aa1 Darby Andrews mr Joe Prince ds4 Adela Howard RN RN tl2 Alec Valentine MD MD ps1 Paulette Anne kw1 Corrections: (The following items were deleted from the chart) 1208 23:03 22:57 BP 139 / 87; Pulse 69bpm; Resp 18bpm; Pulse Ox 98% RA; 90.72 kg; Height 6 ft. 1 tl2 in.; BMI: 26.3; Pain 2/10; tl2
[2018-06-20 05:00] VITALS: TEMP 98.9
[2018-06-20 05:07] VITALS: BP 127/61; O2SAT 98
[2018-06-20 05:50] LABS: Urine Blood 1+ (NEG); Urine Glucose NEGATIVE (NEG); Urine Protein NEGATIVE (NEG); Urine Specific Gravity 1.015 (1.005-1.030); Urine pH 5.5 (5.0-7.0)
--- NOTE | 2018-06-20 12:45 | RAD REPORT ---
EXAM DESCRIPTION: CT - Head C Spine Cap W Con - 06/20/2018 5:11 am CLINICAL HISTORY: Trauma, head and neck injury. Chest, abdomen and pelvis pain. fall, hemotypanum ? Basilar fx. AMS s/p fall COMPARISON: Abdomen Pelvis W Contrast dated 02/16/2018; Head C Spine Cap W Con dated 01/25/2018; Abd omen Pelvis Wo Contrast dated 11/10/2016; HEAD BRAIN W O CONTRAST dated 06/28/2015 TECHNIQUE: CT head without contrast. CT cervical spine without contrast with coronal and sagittal reformatted images. CT chest, abdomen and pelvis with IV contrast (approximately 100 mL nonionic IV contrast) with bonilla l and sagittal reformatted images of the spine. All CT scans are performed using dose optimization technique as appropriate and may include automated exposure control or mA/KV adjustment according to patient size. FINDINGS: CT HEAD WITHOUT CONTRAST: No intracranial hemorrhage, hydrocephalus or extra-axial fluid collection. No areas of brain edema o r midline shift. Mild fluid is seen in the right sphenoid sinus as well as the right ethmoid air cell. The calvarium i s intact. CT CERVICAL SPINE WITHOUT CONTRAST: No fracture or subluxation. Moderate multilevel degenerative changes of the cervical spine. The preve rtebral soft tissues are normal in thickness. CT CHEST, ABDOMEN, PELVIS WITH CONTRAST: Linear subsegmental atelectasis is present in both posterior lung bases. No focal consolidation seen. No pneumothorax or pericardial/pleural fluid. No evidence of intra-abdominal visceral injury, free fluid or free air. No pelvic hematoma. No acute fracture demonstrated. Chronic compression deformity affects T12. IMPRESSION: Negative for acute traumatic findings.
--- NOTE | 2018-06-21 11:37 | EKG ---
Test Date: 2018-06-20 Test Time: 02:20:29 Skein Spooler: BRIAN MEASUREMENT RESULTS: Intervals: Rate: 70 MS: QRSD: 154 QT: 440 QTc: 475 Stanton: P: MS: QRS: -58 T: 108 INTERPRETIVE STATEMENTS: Ventricular-paced rhythm Abnormal ECG Compared to ECG 03/11/2018 09:46:27 No significant changes Electronically Signed On 06-21-18 11:36:32 [employer] by Faustino Russell
== END 2018-06-20 04:55 | disposition home or self-care (01) ==
LOC: ER 22:41
DX: S01.311A Laceration without foreign body of right ear, initial encounter (principal); W19.XXXA Unspecified fall, initial encounter; Y93.89 Activity, other specified; Y92.89 Other specified places as the place of occurrence of the external cause; Z79.01 Long term (current) use of anticoagulants; Z79.82 Long term (current) use of aspirin; Z88.0 Allergy status to penicillin; Z86.718 Personal history of other venous thrombosis and embolism; Z86.73 Personal history of transient ischemic attack (TIA), and cerebral infarction without residual deficits; Z95.0 Presence of cardiac pacemaker; I10 Essential (primary) hypertension; G20 Parkinson's disease
CPT/HCPCS: 36415 ×2; 51702; 70450; 71260; 72125; 74177; 80048; 81003; 84484; 85025; 86850; 86900; 86901; 93005; 99284; Q9967